=== PATIENT | male | born 1955 | race African-American/Black ===

== ENCOUNTER → 2017-09-20 12:21 | Outpatient (CLI) | payer OTHER, SELFPAY ==
[2017-09-20 14:15] LABS: Creatinine, Urine (random) < 13.00 mg/dL (NO RANGE EST.); Protein, Urine (Random) < 6.0 mg/dL (<11.9)
[2017-09-20 14:18] LABS: Albumin, Serum 3.9 g/dL (3.2-5.0); BUN 23 mg/dL (7-18); BUN/Creat Ratio 14.6 RATIO (10-20); Calcium,Total 8.7 mg/dL (8.5-10.1); Chloride 99 mmol/L (98-107); Creatinine, Serum 1.58 mg/dL (0.70-1.30); EST Glomerular Filtration Rate 48 mL/min (>60); Est Glom Filt Rate - Afr Amer 58 mL/min (>60); Glucose 89 mg/dL (74-106); Phosphorus 3.4 mg/dL (2.5-4.9); Potassium 3.8 mmol/L (3.5-5.1); Sodium Level 132 mmol/L (136-145)
== END ==
PROVIDERS: Family Provider Family Medicine Geriatric Medicine; PCP Family Medicine Geriatric Medicine; Visit Provider Internal Medicine Nephrology
DX: N18.3 Chronic kidney disease, stage 3 (moderate) (principal)
CPT/HCPCS: 36415; 80069; 82570; 84156

== ENCOUNTER → 2017-10-14 16:32 | Outpatient (CLI) | payer OTHER, SELFPAY ==
[2017-10-14 17:16] LABS: Absolute Lymphocyte Count 1.63 X10^3/ul (0.83-4.51); Absolute Neutrophil Count 4.1 X10^3/uL (2.0-7.7); Basophil# 0.02 X10^3/uL; Basophil% 0.3 % (0-1); Eosinophil# 0.13 X10^3/uL; Hematocrit 45.2 % (40-54); Hemoglobin 15.1 g/dl (13.0-16.5); Lymphocyte # 1.63 X10^3/ul (4.0); Lymphocyte % 24.9 % (19-41); Mean Corp Hgb Conc 33.4 g/gl (32-36); Mean Corpuscular Hgb 28.9 pg (27.0-32.0); Mean Corpuscular Volume 86.6 fL (80-94); Mean Platelet Vol. 10.1 fl (6.2-12.0); Monocyte# 0.65 X10^3/uL; Monocyte% 9.9 % (0-10); Neutrophil % 62.7 % (47-70); Platelet Count 264 K/mm3 (150-450); RBC Distribution Width CV 14.2 % (11.6-14.6); RBC Distribution Width SD 44.8 fl (35.1-43.9); Red Blood Count 5.22 M/mm3 (4.6-6.2); White Blood Count 6.5 K/mm3 (4.4-11.0)
[2017-10-14 17:22] LABS: POSITIVE COUNT NO; POSITIVE DIFFERENTIAL NO; POSITIVE MORPHOLOGY NO
[2017-10-14 18:09] LABS: ALB/GLOB Ratio 0.8 RATIO (0.9-2.4); AST(SGOT) 33 U/L (15-37); Alanine Aminotransfer ALT/SGPT 42 U/L (16-61); Albumin, Serum 3.5 g/dL (3.2-5.0); Alkaline Phosphatase 71 U/L (45-117); Anion Gap 9 (5-15); BUN 11 mg/dL (7-18); BUN/Creat Ratio 7.3 RATIO (10-20); Calcium,Total 8.3 mg/dL (8.5-10.1); Chloride 105 mmol/L (98-107); EST Glomerular Filtration Rate 51 mL/min (>60); Est Glom Filt Rate - Afr Amer 61 mL/min (>60); Globulin 4.5 g/dL (2.2-4.2); Glucose 97 mg/dL (74-106); PSA,Total - Annual Screen 7.28 ng/mL (0.00-4.00); Potassium 3.7 mmol/L (3.5-5.1); Sodium Level 139 mmol/L (136-145); Thyroid Stim Hormone (TSH) 1.81 uIU/mL (0.358-3.74)
[2017-10-16 11:03] LABS: Hep C Antibodies <0.1 s/co ratio (0.0-0.9)
== END ==
PROVIDERS: Family Provider Family Medicine Geriatric Medicine; PCP Family Medicine Geriatric Medicine; Visit Provider Family Medicine Geriatric Medicine
DX: I10 Essential (primary) hypertension (principal); M10.9 Gout, unspecified; Z12.5 Encounter for screening for malignant neoplasm of prostate; Z13.89 Encounter for screening for other disorder
CPT/HCPCS: 36415; 80053; 84153; 84443; 84550; 85025; 86803; G0103

== ENCOUNTER → 2018-02-13 10:41 | Outpatient (CLI) | payer OTHER, SELFPAY ==
[2018-02-13 12:56] LABS: PSA,Total- Diagnostic 7.86 ng/mL (0.0-4.0)
== END ==
PROVIDERS: Family Provider Family Medicine Geriatric Medicine; PCP Family Medicine Geriatric Medicine; Visit Provider Urology
DX: R97.20 Elevated prostate specific antigen [PSA] (principal)
CPT/HCPCS: 36415; 84153

== ENCOUNTER → 2018-03-11 17:35 | Outpatient (CLI) | payer OTHER, SELFPAY ==
--- NOTE | 2018-03-11 | IMM_PTH ---
PATIENT: MANJINDER GREY LOC: [facility] U#:[id number] AGE/SX: 69/M ROOM: RE03/11/[address]: Dr. Supa Cooper MD : 1955 BED: DIS: SPEC #: [id number] RECD: 03/13/18 11:18 STATUS: SANDRA DANIAL #: [id number] AURY: 03/11/18 00:[address]: Supa Cooper DEPT: IMMUNOHISTOCHEMISTRY RECD BY: Dawn Rasmussen Tissues: B - PROSTATE RIGHT C - PROSTATE RIGHT F - PROSTATE LEFT Procedures: 34BE12 (add) P40 (add) 34BE12 (initial) PHYSICIAN & [place] [id number] SPECIMEN INFORMATION: Tissue Source: B - Right prostate, mid, C - Right prostate, base, F - Left prostate, base Clinical Info: Elevated PSA Specimen Number: [id number] B, C & F CPT code: 67337, 54140 x5 METHODOLOGY: Deparaffinized sections of prefer/formalin-fixed tissue or PAP/DQ stained slides are incubated with monoclonal/polyclonal antibodies/oligonucleotide probes. Localization is made via biotin free immunoperoxidase method. Appropriate controls are performed and reacted as expected. Results on target cell population are indicated in the following table: RESULTS: ANTIBODY / CLONE RESULT Block B P40 (BC28) negative 34BE12 (34BE12) negative Block C P40 (BC28) negative 34BE12 (34BE12) negative Block F P40 (BC28) negative 34BE12 (34BE12) negative These tests were developed and their performance characteristics determined by [facility]. They may not have been cleared or approved by the [place]. Food and Drug Administration. The FDA has determined that such clearance or approval is not necessary. INTERPRETATION: B. Right prostate, mid, core biopsy: Minute foci of adenocarcinoma, discontinuous. C. Right prostate, base, core biopsy: Minute foci of adenocarcinoma, discontinuous. F. Left prostate, base, core biopsy: Minute foci of adenocarcinoma. SJ:keon 03/14/18
--- NOTE | 2018-03-11 11:15 | PROSBIL_PTH ---
PATIENT: MANJINDER GREY LOC: [facility] U#:[id number] AGE/SX: 69/M ROOM: RE03/11/[address]: Dr. Supa Cooper MD : 1955 BED: DIS: SPEC #: [id number] RECD: 03/11/18 17:36 STATUS: SANDRA DANIAL #: [id number] AURY: 03/11/18 11:[address]: Supa Cooper DEPT: SURGICAL PATHOLOGY RECD BY: Antoine Rivero ENTERED: 03/12/18 08:26 SP TYPE: PROST BX BY[place] DR: Dr. Manan Brady MD Tissues: A - PROSTATE RIGHT B - PROSTATE RIGHT C - PROSTATE RIGHT D - PROSTATE LEFT E - PROSTATE LEFT F - PROSTATE LEFT Procedures: PROSTATE BX HEADER OPERATION: Prostate biopsy PRE-OP DIAGNOSIS: Elevated PSA TISSUE SUBMITTED: A - Right apex, B - Right mid, C - Right base, D - Left apex, E - Left mid, F - Left base MICROSCOPIC DIAGNOSIS A. Right prostate, apex, core biopsy: Prostatic adenocarcinoma: [place] grade: 3+4=7 Number of cores involved: 1 out of 2 Proportion of tissue involved: 20% Perineural invasion: Not identified. Greatest tumor length: 0.3 cm B. Right prostate, mid, core biopsy: Minute foci of adenocarcinoma: [place] grade: 4+3=7 Number of cores involved: 2 out of 2 Proportion of tissue involved: <5% Perineural invasion: Not identified. Greatest tumor length: 0.9 cm, discontinuous. See comment. C. Right prostate, base, core biopsy: Minute foci of adenocarcinoma: [place] grade: 3+3=6 Number of cores involved: 2 out of 2 Proportion of tissue involved: <5% Perineural invasion: Not identified. Greatest tumor length: 0.7 cm, discontinuous. Focal high-grade prostatic intraepithelial neoplasia (HGPIN). See comment. D. Left prostate, apex, core biopsy: Prostatic adenocarcinoma: [place] grade: 3+4=7 Number of cores involved: 1 out of 1 Proportion of tissue involved: 60%, discontinuous Perineural invasion: Not identified. Greatest tumor length: 0.6 cm See comment. E. Left prostate, mid, core biopsy: Prostatic adenocarcinoma: [place] grade: 3+3=6 Number of cores involved: 2 out of 2 Proportion of tissue involved: ~25% Perineural invasion: Not identified. Greatest tumor length: 0.3 cm F. Left prostate, base, core biopsy: Minute foci of adenocarcinoma: [place] grade: 3+4=7 Number of cores involved: 2 out of 2 Proportion of tissue involved: <5% Perineural invasion: Not identified. Greatest tumor length: 0.1 cm See comment. SJ:keon 03/13/18 COMMENT B, C & F - Immunohistochemistry ([id number]) supports the above diagnosis. D. The tumor also involves the skeletal muscle tissue present in the specimen. Case has been reviewed in consultation with Dr. Burciaga who concurs with the above diagnosis. IDC:AM MICROSCOPIC DESCRIPTION Slides are reviewed. GROSS DESCRIPTION A - Received is one container designated prostate, right apex. The specimen consists of two elongated fragments of light jarrell-white soft tissue measuring 0.8 and 1.2 cm in length and 0.1 cm in diameter. The specimen is totally submitted in one cassette. B - Received is one container designated prostate, right mid. The specimen consists of two elongated fragments of light jarrell-white soft tissue each measuring 1.5 cm in length and 0.1 cm in diameter. The specimen is totally submitted in one cassette. C - Received is one container designated prostate, right base. The specimen consists of two elongated fragments of light jarrell-white soft tissue measuring 1 and 1.5 cm in length and 0.1 cm in diameter. The specimen is totally submitted in one cassette. D - Received is one container designated prostate, left apex. The specimen consists of one elongated fragment of light jarrell-white soft tissue measuring 1 cm in length and 0.1 cm in diameter. The specimen is totally submitted in one cassette. E - Received is one container designated prostate, left mid. The specimen consists of two elongated fragments of light jarrell-white soft tissue each measuring 2 cm in length and 0.1 cm in diameter. The specimen is totally submitted in one cassette. F - Received is one container designated prostate, left base. The specimen consists of two elongated fragments of light jarrell-white soft tissue measuring 1.5 and 1.8 cm in length and 0.1 cm in diameter. The specimen is totally submitted in one cassette. / LUIS:keon 03/12/18 TC:0 CPT: 14380 x6
== END ==
PROVIDERS: Visit Provider Urology
DX: R97.20 Elevated prostate specific antigen [PSA] (principal)
CPT/HCPCS: 88305; 88341; 88342; G0416

== ENCOUNTER → 2018-03-25 10:06 | Outpatient (CLI) | payer OTHER, SELFPAY | PROVIDERS: Family Provider Family Medicine Geriatric Medicine; PCP Family Medicine Geriatric Medicine; Visit Provider Urology | DX: C61 Malignant neoplasm of prostate (principal) | CPT/HCPCS: 78306 ==

== ENCOUNTER 2018-06-06 10:33 | Day surgery (SDC) | payer OTHER, SELFPAY ==
[2018-06-06] VITALS (9 sets, daily range): BP systolic 85–128; BP diastolic 52–87; PULSE 79–98; RESP 16–18; TEMP 36.3–37.1; O2SAT 95–100; BMI 33.2
[2018-06-06] MEDS: Cefazolin 2 GM in 0.9% Normal Saline 100 ML IV (13:18)
[2018-06-06] MEDS: Lubricating Jelly 60 GM Tube 30 GM TOPICAL (13:31)
--- NOTE | 2018-06-06 13:58 | DCINST_ITS ---
Discharge Diet: Light diet - advance as tolerated Discharge Activity: No Restrictions Allergies/Adverse Reactions: Allergies No Known Allergies Allergy (Verified 05/30/18 13:21) Medications to take at Discharge Amlodipine Besylate/Benazepril [Amlodipine-Benazepril 10-20 mg] 1 each PO DAILY 05/30/18 Febuxostat [Uloric] 80 mg PO DAILY 05/30/18 Rosuvastatin Calcium [Crestor] 10 mg PO QHS 05/30/18 Primary Care Physician: Manan Brady Chi, MD [Primary Care Provider] - Test Results: Test results from this visit will be discussed in further detail at your follow- up appointment, if applicable. Please Follow Up With: Supa Cooper MD
--- NOTE | 2018-06-06 13:58 | PCM.OPRPT ---
Report of Operation Date of Procedure: 06/06/18 Pre-Operative Diagnosis: Prostate cancer Post-Operative Diagnosis: Same Surgery/Procedure Performed:: Transperineal placement of 3 gold fiducial markers for radiation treatment, placement of a spacer O AR gel between the prostate and rectum to protect the rectum Description of Surgical Findings:: 62-year-old male who is elected to undergo radiation treatment for prostate cancer we talked about the options of treatment including radiation therapy with adjuvant deprivation therapy and surgery, brachytherapy as well as other options after a full review and a second opinion the patient comes back and he wants to proceed with radiation external beam radiation therapy, and he is agreed to proceed with placement of fiducial markers as recommended by the radiation oncologist and also placement of a spacer O AR gel to protect the rectum from radiation injury. 62-year-old male taken back to the operating room after smooth induction of general anesthesia he was placed supine on the table with the legs in dorsolithotomy position the perineum testicles penis and rectal area were prepped and draped in usual sterile fashion used 1000 drape the pole of the testicles I then introduced a biplanar ultrasound probe into the rectum we performed ultrasonography of the prostate identify the prostate landmarks the tenotomies fascia of the rectum. I then placed 3 gold fiducial markers transperineally into the prostate in 3 different planes the right apex left mid and right base of the prostate once all 3 fiducial markers were placed in the proper position there were deployed using the needles. After the fusion markers were placed then we prepared prepared the spacer AOR gel the spacer gel was prepared as instructed as the manufactures instructions were followed very closely to make sure the gel was prepared properly we then used a bevel needle up to advance the needle through the perineum pass the rectal hump into the space between the rectum and an obvious fascia below the prostate we could see a cyst in the mid prostate we then tested the space with a little bit of saline and this expanded the space with no extravasation and a nice puff of saline in the perirectal space once the needle was confirmed to be in proper location both by biplanar and sagittal view on ultrasound I then attached to the gel was prepared to the needle we then deployed the gel over the course of 12 seconds into the space below the prostate above the rectum once the gel was deployed then a review of course was obstructed by the gel white washing of the prostate into the prostate and more but the gel appear to be in a good position both both attached sagittally and longitudinal view and ultrasound and I was satisfied with the positioning of the gel matrix at this point then the ultrasound was removed the needle was removed and the patient's anesthetic was reversed taken back to PACU good condition is good to proceed with radiation treatments. Type of Anesthesia:: General Drains: none Estimated Blood Loss (mL): none Grafts/Implants Used: gold markers, AOR gel - Admit VTE Documentation VTE Present on Admission: No VTE Mechan Device Prophylaxis: SCD's
== END 2018-06-06 15:50 | disposition home or self-care (01) ==
LOC: SDC 10:33 → AC 10:35
PROVIDERS: Family Provider Family Medicine Geriatric Medicine; PCP Family Medicine Geriatric Medicine; Referring Provider Urology; Visit Provider Urology
PROC: (CPT 55874; principal; 2018-06-06 12:30)
DX: C61 Malignant neoplasm of prostate (principal); I13.10 Hypertensive heart and chronic kidney disease without heart failure, with stage 1 through stage 4 chronic kidney disease, or unspecified chronic kidney disease; N18.3 Chronic kidney disease, stage 3 (moderate); K21.9 Gastro-esophageal reflux disease without esophagitis; E78.5 Hyperlipidemia, unspecified; G47.30 Sleep apnea, unspecified; Z79.899 Other long term (current) drug therapy
CPT/HCPCS: 00902; 55875; 76965; 77799; J7120; J2405

== ENCOUNTER → 2018-06-20 10:43 | Outpatient (CLI) | payer OTHER, SELFPAY ==
[2018-06-19 11:42] LABS: Absolute Lymphocyte Count 1.42 X10^3/ul (0.83-4.51); Absolute Neutrophil Count 3.4 X10^3/uL (2.0-7.7); Basophil# 0.03 X10^3/uL; Basophil% 0.5 % (0-1); Eosinophil# 0.09 X10^3/uL; Eosinophils% 1.6 % (0-5); Hematocrit 45.6 % (40-54); Hemoglobin 15.4 g/dl (13.0-16.5); Lymphocyte # 1.42 X10^3/ul (4.0); Lymphocyte % 24.8 % (19-41); Mean Corp Hgb Conc 33.8 g/gl (32-36); Mean Corpuscular Hgb 29.2 pg (27.0-32.0); Mean Corpuscular Volume 86.4 fL (80-94); Mean Platelet Vol. 10.3 fl (6.2-12.0); Monocyte# 0.74 X10^3/uL; Monocyte% 12.9 % (0-10); Neutrophil # 3.44 X10^3/uL (2.7-7.7); Platelet Count 296 K/mm3 (150-450); RBC Distribution Width CV 13.9 % (11.6-14.6); Red Blood Count 5.28 M/mm3 (4.6-6.2); White Blood Count 5.7 K/mm3 (4.4-11.0)
[2018-06-19 11:43] LABS: POSITIVE COUNT NO; POSITIVE DIFFERENTIAL NO; POSITIVE MORPHOLOGY NO
[2018-06-19 12:14] LABS: Creatinine, Serum 1.75 mg/dL (0.70-1.30); EST Glomerular Filtration Rate 42 mL/min (>60); Est Glom Filt Rate - Afr Amer 51 mL/min (>60); PSA,Total- Diagnostic 7.23 ng/mL (0.0-4.0)
--- NOTE | 2018-06-20 10:45 | CT_ITS ---
STUDY: CT PELVIS WITH CONTRAST REASON FOR EXAM: Male, 62 years old. Recent diagnosis of prostate cancer. This is a radiation treatment planning examination. RADIATION DOSAGE (If Supplied By Facility): CTDIvol = ( 24.62 ) mGy, DLP = ( 1608.31 ) mGycm TECHNIQUE: Transaxial imaging of the pelvis was performed without oral contrast. 100CC ml of Isovue 250 contrast was administered intravenously. A urethrogram was performed as well. Individualized dose optimization techniques were used for this CT. COMPARISON: None. FINDINGS: Normal urinary bladder. Metallic seeds are seen within the prostate. The prostate measures 4.2 cm x 5.1 cm. Small benign appearing bilateral inguinal lymph nodes. The urethra is unremarkable. Normal visualized small intestine. Normal visualized colon. There is no pelvic fluid. There is no pelvic lymphadenopathy or mass lesion. There is diffuse atherosclerotic calcification of the pelvic arteries. Normal abdominal wall. There are degenerative changes of the visualized lumbar spine. Degenerative changes of both sacroiliac joints. CT/Pelvis WITH IV Contrast IMPRESSION: Metallic seeds are seen within the prostate. Electronically Signed: Andrea Banegas MD at 8:26 EST Tel [phone], Service support ,
[2018-06-20 11:56] LABS: CREATININE FINGERSTICK 1.6 mg/dL (0.70-1.30)
== END ==
PROVIDERS: Family Provider Family Medicine Geriatric Medicine; PCP Family Medicine Geriatric Medicine; Referring Provider Radiology Radiation Oncology; Visit Provider Radiology Radiation Oncology
DX: Z01.818 Encounter for other preprocedural examination (principal); C61 Malignant neoplasm of prostate
CPT/HCPCS: 36415; 72193; 82565; 84153; 85025; Q9967

== ENCOUNTER → 2018-07-14 12:38 | Outpatient (CLI) | payer OTHER, SELFPAY ==
[2018-06-06 11:20] VITALS: BMI 33.2
[2018-07-14 13:34] LABS: Protein, Urine (Random) < 6.0 mg/dL (<11.9)
[2018-07-14 13:45] LABS: Albumin, Serum 3.5 g/dL (3.2-5.0); BUN 29 mg/dL (7-18); BUN/Creat Ratio 17.3 RATIO (10-20); Calcium,Total 8.8 mg/dL (8.5-10.1); Chloride 102 mmol/L (98-107); Creatinine, Serum 1.68 mg/dL (0.70-1.30); EST Glomerular Filtration Rate 44 mL/min (>60); Est Glom Filt Rate - Afr Amer 54 mL/min (>60); Glucose 95 mg/dL (74-106); Phosphorus 3.3 mg/dL (2.5-4.9); Potassium 4.2 mmol/L (3.5-5.1); Sodium Level 137 mmol/L (136-145)
--- OUTSIDE RECORDS SUMMARY | 2018-09-06 19:11 | XMS RPT_ITS ---
:1955 Author Organization OHIP Support Name Relationship Address Phone ALEXANDRE GREY Unavailable [address] + [place] [address] SEACO Unavailable [address] + [place] [address] QUE, ALEXANDRE Unavailable [address] + [place] [address] SEACO Unavailable [address] + [place] [address] QUE, ALEXANDRE Unavailable [address] + [place] [address] SEACO Unavailable [address] + [place] [address] QUE, ALEXANDRE Unavailable [address] + [place] [address] SEACO Unavailable [address] + [place] [address] QUE, ALEXANDRE Unavailable [address] + [place] [address] SEACO Unavailable [address] + [place] [address] QUE, ALEXANDRE Unavailable [address] + [place] [address] SEACO Unavailable [address] + [place] [address] QUE, ALEXANDRE Unavailable [address] + [place] [address] SEACO Unavailable [address] + [place] [address] QUE, ALEXANDRE Unavailable [address] + [place] [address] SEACO Unavailable [address] + [place] [address] QUE, ALEXANDRE Unavailable [address] + [place] [address] SEACO Unavailable [address] + [place] [address] QUE ALEXANDRE Unavailable [address] + [place] [address] SEACO Unavailable [address] + [place] [address] Care Team Providers Name Role Phone Yong Sears Attending Unavailable Yong Sears Referring Unavailable Jose Antonio, Manan Chi Primary Care Unavailable Eli Epstein Attending Unavailable Lucian, Eli Referring Unavailable Jose Antonio, Manan Chi Primary Care Unavailable Jose Antonio, Manan Chi Attending Unavailable Jose Antonio, Manan Chi Primary Care Unavailable Kenneth, Supa Crowe Attending Unavailable Kenneth, Supa Crowe Referring Unavailable Jose Antonio, Manan Chi Primary Care Unavailable Kenneth, Supa Crowe Attending Unavailable Jose Antonio, Manan Chi Primary Care Unavailable Kenneth, Alpesh Referring Unavailable Kenneth, Supa Crowe Attending Unavailable Kenneth, Alpesh Referring Unavailable Jose Antonio, Manan Chi Primary Care Unavailable Kenneth, Supa Crowe Attending Unavailable Jose Antonio, Manan Chi Primary Care Unavailable Kenneth, Alpesh Referring Unavailable Lucian, Eli Attending Unavailable Jose Antonio, Manan Chi Primary Care Unavailable Yong Sears Attending Unavailable Yong Sears Referring Unavailable Jose Antonio, Manan Chi Primary Care Unavailable Lucian, Eli Attending Unavailable Lucian, Eli Referring Unavailable Jose Antonio, Manan Chi Primary Care Unavailable PROBLEMS PROBLEMS DATE TYPE CONDITION / CODE ATTENDING STATUS SOURCE 06/20/2018 Unknown C61 - Malignant Yong Sears Active [facility] C61(ICD-10) Repository PROCEDURES PROCEDURES No Procedure Records FoundRESULTS RESULTS CBC W/DIFF, AUTOMATED Collected: 07/23/2018 Status: F Source: [place] 12:56 PM [facility] REPOSITORY TYPE CODE TESTS RESULT OUT OF RANGE REFERENCE UNITS LAB L100.1000 4.4-11.0 K/mm3 Normal WBC 4.6 LAB L100.1200 4.6-6.2 M/mm3 Normal RBC 4.97 LAB L100.1300 13.0-16.5 g/dl Normal HGB 14.5 LAB L100.1400 40-54 % Normal HCT 42.5 LAB L100.1500 80-94 fL Normal MCV 85.5 LAB L100.1600 27.0-32.0 pg Normal MCH 29.2 LAB L100.1700 32-36 g/gl Normal MCHC 34.1 LAB L100.1810 11.6-14.6 % Normal RDW CV 13.3 LAB L100.1820 35.1-43.9 fl Normal RDW SD 41.8 LAB L100.1900 150-450 K/mm3 Normal PLT 206 LAB L100.2000 6.2-12.0 fl Normal MPV 9.8 LAB L100.2100 47-70 % High NEUT% 73.0 LAB L100.2200 19-41 % Low LY% 10.8 LAB L100.2300 0-10 % High MONO% 14.1 LAB L100.2400 0-5 % Normal EO% 1.9 LAB L100.2500 0-1 % Normal BASO% 0.2 LAB L100.2550 0.0-0.9 % Normal IM GRAN % 0.000 Result Comment: IG% - Immature Granulocytes (promyelocytes, myelocytes and metamyelocytes) > 1% indicates that a LEFT SHIFT is Present. LAB L100.2620 2.0-7.7 X10 3/uL Normal Absolute Neut 3.4 LAB L100.2720 0.83-4.51 X10 3/ul Low Absolute Lymph 0.50 LAB L100.4500 Normal SMEAR COMMENT COMMENT Result Comment: SLIDE SCANNED - LYMPHOPENIA NOTED. Performed By: #### L100.0100 #### [facility] [address] [place], [place], [id number] PROTEIN+CREATININE Collected: Status: F Source: [place] [facility],URINE 07/14/2018 12:48 PM [facility] REPOSITORY TYPE CODE TESTS RESULT OUT OF RANGE REFERENCE UNITS LAB L501.1200 NO RANGE EST. mg/dL 17.50 Normal UR CREAT LAB L501.1930 <11.9 mg/dL < 6.0 Normal PROTEIN,UR. RAN. LAB L501.1940 0-200 mg/g CRE Test Normal not performed PROT:CRE RATIO Performed By: #### L501.0900 #### [facility] [address] [place], [place], [id number] RENAL PROFILE Collected: 07/14/2018 Status: F Source: [place] 12:48 PM [facility] REPOSITORY TYPE CODE TESTS RESULT OUT OF RANGE REFERENCE UNITS LAB L501.0100 74-106 mg/dL Normal GLU 95 Result Comment: Please note revised GLUCOSE reference range effective 2017. LAB L501.1000 7-18 mg/dL High BUN 29 LAB L501.1100 0.70-1.30 mg/dL High CREAT,SERUM 1.68 Result Comment: The validity of the calculated GFR AND GFRAA in patients over 70 years has not been determined. Clinical correlation is essential. LAB L501.1110 >60 mL/min Low EST GFR 44 Result Comment: Non- GFR Calc LAB L501.1115 >60 mL/min Low EST GFR - AA 54 Result Comment: GFR Calc LAB L501.1300 10-20 RATIO Normal BUN/CRE 17.3 LAB L501.1800 3.2-5.0 g/dL Normal ALB 3.5 LAB L501.2200 8.5-10.1 mg/dL CA Normal 8.8 LAB L501.2300 2.5-4.9 mg/dL Normal PHOS 3.3 LAB L501.5300 136-145 mmol/L NA Normal 137 LAB L501.5600 3.5-5.1 mmol/L K Normal 4.2 LAB L501.5900 98-107 mmol/L CL Normal 102 LAB L501.6100 21.0-32.0 mmol/L Normal CO2 24.0 Performed By: #### L500.3600 #### [facility] [address] [place], [place], [address] CREATININE FINGERSTICK Collected: 06/20/2018 Status: F Source: [place] 11:18 AM [facility] REPOSITORY TYPE CODE TESTS RESULT OUT OF REFERENCE UNITS RANGE LAB L9100.0210 0.70-1.30 mg/dL High CREATININE WB 1.6 LAB L9100.0220 >60 mL/min Low EGFR WB 58.0000 Performed By: #### L9100.0200 #### [facility] Point of Care [address] [place] [address] PELVIS WITH IV Observed: 06/20/2018 Status: F Source: [place] CONTRAST 10:45 AM [facility] REPOSITORY [facility] Imaging Services [address] [place] [address] Pelvis WITH IV Contrast MR#: [id number] Acct: [id number] Name: NORBERTO GREY Rep #: [id number] : 1955 M 62 From: Andrea Banegas MD PCP: Manan Brady MD, Chi Status: REG CLI Study: Pelvis WITH IV Contrast Date of Exam: 06/20/18 Exam# [id number] Ordering Dr: Yong Sears MD STUDY: CT PELVIS WITH CONTRAST REASON FOR EXAM: Male, 62 years old. Recent diagnosis of prostate cancer. This is a radiation treatment planning examination. RADIATION DOSAGE (If Supplied By Facility): CTDIvol = ( 24.62 ) mGy, DLP = ( 1608.31 ) mGycm TECHNIQUE: Transaxial imaging of the pelvis was performed without oral contrast. 100CC ml of Isovue 250 contrast was administered intravenously. A urethrogram was performed as well. Individualized dose optimization techniques were used for this CT. COMPARISON: None. FINDINGS: Normal urinary bladder. Metallic seeds are seen within the prostate. The prostate measures 4.2 cm x 5.1 cm. Small benign appearing bilateral inguinal lymph nodes. The urethra is unremarkable. Normal visualized small intestine. Normal visualized colon. There is no pelvic fluid. There is no pelvic lymphadenopathy or mass lesion. There is diffuse atherosclerotic calcification of the pelvic arteries. Normal abdominal wall. There are degenerative changes of the visualized lumbar spine. Degenerative changes of both sacroiliac joints. CT/Pelvis WITH IV Contrast IMPRESSION: Metallic seeds are seen within the prostate. Electronically Signed: Andrea Banegas MD at 8:26 EST Tel [phone], Service support , CC: Yong Sears MD; Manan Brady MD Foundry Process Engineer: Signed CBC W/DIFF, AUTOMATED Collected: 06/19/2018 Status: F Source: [place] 10:32 AM [facility] REPOSITORY TYPE CODE TESTS RESULT OUT OF RANGE REFERENCE UNITS LAB L100.1000 4.4-11.0 K/mm3 Normal WBC 5.7 LAB L100.1200 4.6-6.2 M/mm3 Normal RBC 5.28 LAB L100.1300 13.0-16.5 g/dl Normal HGB 15.4 LAB L100.1400 40-54 % Normal HCT 45.6 LAB L100.1500 80-94 fL Normal MCV 86.4 LAB L100.1600 27.0-32.0 pg Normal MCH 29.2 LAB L100.1700 32-36 g/gl Normal MCHC 33.8 LAB L100.1810 11.6-14.6 % Normal RDW CV 13.9 LAB L100.1820 35.1-43.9 fl High RDW SD 44.0 LAB L100.1900 150-450 K/mm3 Normal PLT 296 LAB L100.2000 6.2-12.0 fl Normal MPV 10.3 LAB L100.2100 47-70 % Normal NEUT% 60.0 LAB L100.2200 19-41 % Normal LY% 24.8 LAB L100.2300 0-10 % High MONO% 12.9 LAB L100.2400 0-5 % Normal EO% 1.6 LAB L100.2500 0-1 % Normal BASO% 0.5 LAB L100.2550 0.0-0.9 % Normal IM GRAN % 0.200 Result Comment: IG% - Immature Granulocytes (promyelocytes, myelocytes and metamyelocytes) > 1% indicates that a LEFT SHIFT is Present. LAB L100.2620 2.0-7.7 X10 3/uL Normal Absolute Neut 3.4 LAB L100.2720 0.83-4.51 X10 3/ul Normal Absolute Lymph 1.42 Performed By: #### L100.0100 #### [facility] [address] [place], [address] SERUM CREATININE AND Collected: 06/19/2018 Status: F Source: [place] GFR 10:32 AM [facility] REPOSITORY TYPE CODE TESTS RESULT OUT OF RANGE REFERENCE UNITS LAB L501.1100 0.70-1.30 mg/dL High 1.75 CREAT,SERUM Result Comment: The validity of the calculated GFR AND GFRAA in patients over 70 years has not been determined. Clinical correlation is essential. LAB L501.1110 >60 mL/min Low EST GFR 42 Result Comment: Non- GFR Calc LAB L501.1115 >60 mL/min Low EST GFR - AA 51 Result Comment: GFR Calc Performed By: #### L501.1105, L501.9940 #### [facility] [address] [place], [address] PSA,TOTAL- DIAGNOSTIC Collected: 06/19/2018 Status: F Source: [place] 10:32 AM [facility] REPOSITORY TYPE CODE TESTS RESULT OUT OF REFERENCE UNITS RANGE LAB L501.9940 0.0-4.0 ng/mL PSA, High DIAGNOSTIC 7.23 Result Comment: This test was performed using the TPSA assay method for the Solaicx chemistry system. Values obtained with different assay methods cannot be used interchangably. When changing PSA assays in the course of monitoring a patient, additional sequential testing should be carried out to confirm baseline values. Performed By: #### L501.1105, L501.9940 #### [facility] [address] [place], [address] OPERATIVE REPORT Observed: 06/06/2018 Status: F Source: [place] 2:03 PM [facility] REPOSITORY [facility] Medical Records Department [address] [facility] [place] [address] Operative Report 06/06/18 1358 MR#: [id number] Acct: [id number] Name: NORBERTO GREY Rep #: [id number] : 1955 62 From: Supa Cooper MD PCP: Manan Brady MD, Chi Status: [facility] Y Location: [place] [address] Report of Operation Date of Procedure: 06/06/18 Pre-Operative Diagnosis: Prostate cancer Post-Operative Diagnosis: Same Surgery/Procedure Performed:: Transperineal placement of 3 gold fiducial markers for radiation treatment, placement of a spacer O AR gel between the prostate and rectum to protect the rectum Description of Surgical Findings:: 62-year-old male who is elected to undergo radiation treatment for prostate cancer we talked about the options of treatment including radiation therapy with adjuvant deprivation therapy and surgery, brachytherapy as well as other options after a full review and a second opinion the patient comes back and he wants to proceed with radiation external beam radiation therapy, and he is agreed to proceed with placement of fiducial markers as recommended by the radiation oncologist and also placement of a spacer O AR gel to protect the rectum from radiation injury. 62-year-old male taken back to the operating room after smooth induction of general anesthesia he was placed supine on the table with the legs in dorsolithotomy position the perineum testicles penis and rectal area were prepped and draped in usual sterile fashion used 1000 drape the pole of the testicles I then introduced a biplanar ultrasound probe into the rectum we performed ultrasonography of the prostate identify the prostate landmarks the tenotomies fascia of the rectum. I then placed 3 gold fiducial markers transperineally into the prostate in 3 different planes the right apex left mid and right base of the prostate once all 3 fiducial markers were placed in the proper position there were deployed using the needles. After the fusion markers were placed then we prepared prepared the spacer AOR gel the spacer gel was prepared as instructed as the manufactures instructions were followed very closely to make sure the gel was prepared properly we then used a bevel needle up to advance the needle through the perineum pass the rectal hump into the space between the rectum and an obvious fascia below the prostate we could see a cyst in the mid prostate we then tested the space with a little bit of saline and this expanded the space with no extravasation and a nice puff of saline in the perirectal space once the needle was confirmed to be in proper location both by biplanar and sagittal view on ultrasound I then attached to the gel was prepared to the needle we then deployed the gel over the course of 12 seconds into the space below the prostate above the rectum once the gel was deployed then a review of course was obstructed by the gel white washing of the prostate into the prostate and more but the gel appear to be in a good position both both attached sagittally and longitudinal view and ultrasound and I was satisfied with the positioning of the gel matrix at this point then the ultrasound was removed the needle was removed and the patient's anesthetic was reversed taken back to PACU good condition is good to proceed with radiation treatments. Type of Anesthesia:: General Drains: none Estimated Blood Loss (mL): none Grafts/Implants Used: gold markers, AOR gel - Admit VTE Documentation VTE Present on Admission: No VTE Mechan Device Prophylaxis: SCD's 06/06/18 1403 <Electronically signed by Supa Cooper MD> Date Supa Cooper MD CC: Supa Cooper MD; Manan Brady MD Signed DISCHARGE INSTRUCTION Observed: 06/06/2018 Status: F Source: [place] 1:58 PM [facility] REPOSITORY [facility] Medical Records Department [address] [place] [address] [place] [address] Instructions for Home/Discharge Instructions 06/06/18 1358 MR#: [id number] Acct: [id number] Name: NORBERTO GREY Rep #: [id number] : 1955 62 From: Supa Cooper MD PCP: Manan Brady MD, Chi Status: REG [facility] Discharge Diet: Light diet - advance as tolerated Discharge Activity: No Restrictions Allergies/Adverse Reactions: Allergies No Known Allergies Allergy (Verified 05/30/18 13:21) Medications to take at Discharge Amlodipine Besylate/Benazepril [Amlodipine-Benazepril 10-20 mg] 1 each PO DAILY 05/30/18 Febuxostat [Uloric] 80 mg PO DAILY 05/30/18 Rosuvastatin Calcium [Crestor] 10 mg PO QHS 05/30/18 Primary Care Physician: Manan Brady Chi, MD [Primary Care Provider] - Test Results: Test results from this visit will be discussed in further detail at your follow-up appointment, if applicable. Please Follow Up With: Supa Cooper MD 06/06/18 5497 <Electronically signed by Supa Cooper MD> Date Supa Cooper MD CC: Maann Brady MD BONE SCAN WHOLE Observed: 03/25/2018 Status: F Source: [place] BODY 10:08 AM [facility] REPOSITORY [facility] Imaging Services [address] [place] [address] Bone Scan Whole Body MR#: [id number] Acct: [id number] Name: NORBERTO GREY Rep #: [id number] : 1955 M 62 From: Herminio Owens DO PCP: Manan Brady MD, Chi Status: REG CLI Study: Bone Scan Whole Body Date of Exam: 03/25/18 Exam# [id number] Ordering Dr: Supa Cooper MD CLINICAL: 62-year-old male with reported history of carcinoma of the prostate. WHOLE BODY 99m Tc MDP RADIONUCLIDE BONE SCINTIGRAPHY COMPARISON: None available FINDINGS: Following the intravenous administration of 26.0 mCi of 99m Tc MDP, whole body bone images reveal: 1. Increased radiopharmaceutical concentration is identified in the acromioclavicular and sternoclavicular compartments of both shoulders, bilateral elbow and wrist articulations, right-left hands, knees bilaterally, the left sacroiliac joint, fifth-10th thoracic vertebra heterogeneously. 2. The remaining skeletal structures are scintigraphically unremarkable with normal-appearing renal images and urinary bladder activity identified. An increase in uptake is demonstrated in the bilateral mandible and maxilla most consistent with periodontal disease and/or periostitis. NM/Bone Scan Whole Body IMPRESSION: 1. The increase in radiopharmaceutical concentration identified in the bilateral shoulder, elbow and wrist articulations, hands bilaterally, both knees, left sacroiliac joint, several thoracic vertebra is most consistent with degenerative arthritis. Plain film radiography correlation may be of benefit in the region of the left sacroiliac joint. 2. There is no definitive typical scintigraphic evidence of diffuse axial skeletal metastatic disease on the current examination. Electronically Signed: Herminio Owens DO at 21:54 EDT Tel , Service support , CC: Supa Cooper MD; Manan Brady MD Foundry Process Engineer: Signed PROSTATE BIOPSY Observed: 03/11/2018 Status: F Source: [place] BILATERAL 11:15 AM [facility] REPOSITORY Patient: NORBERTO GREY : 1955 (62/M) Acct Num: [id number] Phys: Kenneth ROGER,Alpesh Unit Num: [id number] Loc: [facility] Specimen: [id number] Received: 03/11/18 - 1738 Spec Type: PROST BX TISSUES TISSUES: A. PROSTATE RIGHT - RIGHT APEX B. PROSTATE RIGHT - RIGHT MID C. PROSTATE RIGHT - RIGHT BASE D. PROSTATE LEFT - LEFT APEX E. PROSTATE LEFT - LEFT MID F. PROSTATE LEFT - LEFT BASE COMMENT B, C AND F - Immunohistochemistry ([id number]) supports the above diagnosis. D. The tumor also involves the skeletal muscle tissue present in the specimen. Case has been reviewed in consultation with Dr. Burciaga who concurs with the above diagnosis. IDC:AM GROSS DESCRIPTION A - Received is one container designated prostate, right apex. The specimen consists of two elongated fragments of light jarrell-white soft tissue measuring 0.8 and 1.2 cm in length and 0.1 cm in diameter. The specimen is totally submitted in one cassette. B - Received is one container designated prostate, right mid. The specimen consists of two elongated fragments of light jarrell-white soft tissue each measuring 1.5 cm in length and 0.1 cm in diameter. The specimen is totally submitted in one cassette. C - Received is one container designated prostate, right base. The specimen consists of two elongated fragments of light jarrell-white soft tissue measuring 1 and 1.5 cm in length and 0.1 cm in diameter. The specimen is totally submitted in one cassette. D - Received is one container designated prostate, left apex. The specimen consists of one elongated fragment of light jarrell-white soft tissue measuring 1 cm in length and 0.1 cm in diameter. The specimen is totally submitted in one cassette. E - Received is one container designated prostate, left mid. The specimen consists of two elongated fragments of light jarrell-white soft tissue each measuring 2 cm in length and 0.1 cm in diameter. The specimen is totally submitted in one cassette. F - Received is one container designated prostate, left base. The specimen consists of two elongated fragments of light jarrell-white soft tissue measuring 1.5 and 1.8 cm in length and 0.1 cm in diameter. The specimen is totally submitted in one cassette. / SJ:keon 03/12/18 TC:0 CPT: 22405 x6 HEADER OPERATION: Prostate biopsy PRE-OP DIAGNOSIS: Elevated PSA TISSUE SUBMITTED: A - Right apex, B - Right mid, C - Right base, D - Left apex , E - Left mid, F - Left base MICROSCOPIC DESCRIPTION Slides are reviewed. MICROSCOPIC DIAGNOSIS A. Right prostate, apex, core biopsy: Prostatic adenocarcinoma: Preston grade: 3+4=7 Number of cores involved: 1 out of 2 Proportion of tissue involved: 20% Perineural invasion: Not identified. Greatest tumor length: 0.3 cm B. Right prostate, mid, core biopsy: Minute foci of adenocarcinoma: Preston grade: 4+3=7 Number of cores involved: 2 out of 2 Proportion of tissue involved: <5% Perineural invasion: Not identified. Greatest tumor length: 0.9 cm, discontinuous. See comment. C. Right prostate, base, core biopsy: Minute foci of adenocarcinoma: [place] grade: 3+3=6 Number of cores involved: 2 out of 2 Proportion of tissue involved: <5% Perineural invasion: Not identified. Greatest tumor length: 0.7 cm, discontinuous. Focal high-grade prostatic intraepithelial neoplasia (HGPIN). See comment. D. Left prostate, apex, core biopsy: Prostatic adenocarcinoma: Preston grade: 3+4=7 Number of cores involved: 1 out of 1 Proportion of tissue involved: 60%, discontinuous Perineural invasion: Not identified. Greatest tumor length: 0.6 cm See comment. E. Left prostate, mid, core biopsy: Prostatic adenocarcinoma: Preston grade: 3+3=6 Number of cores involved: 2 out of 2 Proportion of tissue involved: ~25% Perineural invasion: Not identified. Greatest tumor length: 0.3 cm F. Left prostate, base, core biopsy: Minute foci of adenocarcinoma: [place] grade: 3+4=7 Number of cores involved: 2 out of 2 Proportion of tissue involved: <5% Perineural invasion: Not identified. Greatest tumor length: 0.1 cm See comment. LUIS:keon 03/13/18 Signed Basil Linares 03/14/18 <signature on file> Performed By: #### PPROSBIL #### [facility] [address] [place] [address]. [place], [address] IMMUNOHISTOCHEMISTRY Observed: 03/11/2018 Status: F Source: [place] 12:00 AM [facility] REPOSITORY Patient: NORBERTO GREY : 1955 (62/M) Acct Num: [id number] Phys: Kenneth ROGER,Alpesh Unit Num: [id number] Loc: [facility] Specimen: [id number] Received: 03/13/181117 Spec Type: IMMUNO TISSUES TISSUES: B. PROSTATE RIGHT C. PROSTATE RIGHT F. PROSTATE LEFT SPECIMEN INFORMATION: Tissue Source: B - Right prostate, mid, C - Right prostate, base, F - Left prostate, base Clinical Info: Elevated PSA Specimen Number: [id number] B, C AND F CPT code: 80135, 23650 x5 METHODOLOGY: Deparaffinized sections of prefer/formalin-fixed tissue or PAP/DQ stained slides are incubated with monoclonal/polyclonal antibodies/oligonucleotide probes. Localization is made via biotin free immunoperoxidase method. Appropriate controls are performed and reacted as expected. Results on target cell population are indicated in the following table: RESULTS: ANTIBODY / CLONE RESULT Block B P40 (BC28) negative 34BE12 (34BE12) negative Block C P40 (BC28) negative 34BE12 (34BE12) negative Block F P40 (BC28) negative 34BE12 (34BE12) negative These tests were developed and their performance characteristics determined by [facility]. They may not have been cleared or approved by the U.S. Food and Drug Administration. The FDA has determined that such clearance or approval is not necessary. INTERPRETATION: B. Right prostate, mid, core biopsy: Minute foci of adenocarcinoma, discontinuous. C. Right prostate, base, core biopsy: Minute foci of adenocarcinoma, discontinuous. F. Left prostate, base, core biopsy: Minute foci of adenocarcinoma. SJ:keon 03/14/18 PHYSICIAN AND INSTITUTION [address] [address] Signed Basil Linares 03/14/18 <signature on file> Performed By: #### PIMM #### [facility] [address] [place], [address] PSA,TOTAL- DIAGNOSTIC Collected: 02/13/2018 Status: F Source: [place] 10:46 AM [facility] REPOSITORY TYPE CODE TESTS RESULT OUT OF REFERENCE UNITS RANGE LAB L501.9940 0.0-4.0 ng/mL PSA, High DIAGNOSTIC 7.86 Result Comment: This test was performed using the TPSA assay method for the [employer] chemistry system. Values obtained with different assay methods cannot be used interchangably. When changing PSA assays in the course of monitoring a patient, additional sequential testing should be carried out to confirm baseline values. Performed By: #### L501.9940 #### [facility] [address] [place], [address] CBC W/DIFF, AUTOMATED Collected: 10/14/2017 Status: F Source: [facility] 4:33 PM [facility] REPOSITORY TYPE CODE TESTS RESULT OUT OF RANGE REFERENCE UNITS LAB L100.1000 4.4-11.0 K/mm3 Normal WBC 6.5 LAB L100.1200 4.6-6.2 M/mm3 Normal RBC 5.22 LAB L100.1300 13.0-16.5 g/dl Normal HGB 15.1 LAB L100.1400 40-54 % Normal HCT 45.2 LAB L100.1500 80-94 fL Normal MCV 86.6 LAB L100.1600 27.0-32.0 pg Normal MCH 28.9 LAB L100.1700 32-36 g/gl Normal MCHC 33.4 LAB L100.1810 11.6-14.6 % Normal RDW CV 14.2 LAB L100.1820 35.1-43.9 fl High RDW SD 44.8 LAB L100.1900 150-450 K/mm3 Normal PLT 264 LAB L100.2000 6.2-12.0 fl Normal MPV 10.1 LAB L100.2100 47-70 % Normal NEUT% 62.7 LAB L100.2200 19-41 % Normal LY% 24.9 LAB L100.2300 0-10 % Normal MONO% 9.9 LAB L100.2400 0-5 % Normal EO% 2.0 LAB L100.2500 0-1 % Normal BASO% 0.3 LAB L100.2550 0.0-0.9 % Normal IM GRAN % 0.200 Result Comment: IG% - Immature Granulocytes (promyelocytes, myelocytes and metamyelocytes) > 1% indicates that a LEFT SHIFT is Present. LAB L100.2620 2.0-7.7 X10 3/uL Normal Absolute Neut 4.1 LAB L100.2720 0.83-4.51 X10 3/ul Normal Absolute Lymph 1.63 Performed By: #### L100.0100 #### [facility] [address] [place], [address] COMPREHENSIVE METABOLIC Collected: 10/14/2017 Status: F Source: [facility] 4:33 PM [facility] REPOSITORY TYPE CODE TESTS RESULT OUT OF RANGE REFERENCE UNITS LAB L501.0100 74-106 mg/dL Normal GLU 97 Result Comment: Please note revised GLUCOSE reference range effective 2017. LAB L501.1000 7-18 mg/dL Normal BUN 11 LAB L501.1100 0.70-1.30 mg/dL High CREAT,SERUM 1.50 Result Comment: The validity of the calculated GFR AND GFRAA in patients over 70 years has not been determined. Clinical correlation is essential. LAB L501.1110 >60 mL/min Low EST GFR 51 Result Comment: Non- GFR Calc LAB L501.1115 >60 mL/min Normal EST GFR - AA 61 Result Comment: GFR Calc LAB L501.1300 10-20 RATIO Low BUN/CRE 7.3 LAB L501.1500 6.4-8.2 g/dL Normal T PROT 8.0 LAB L501.1800 3.2-5.0 g/dL Normal ALB 3.5 LAB L501.1950 2.2-4.2 g/dL High GLOB 4.5 LAB L501.2000 0.9-2.4 RATIO Low A/G 0.8 LAB L501.2200 8.5-10.1 mg/dL Low CA 8.3 LAB L501.4100 15-37 U/L Normal AST 33 LAB L501.4305 45-117 U/L Normal ALK P 71 LAB L501.4405 16-61 U/L Normal ALT 42 Result Comment: Please note revised ALT reference range effective 2017. LAB L501.4600 0.20-1.00 mg/dL Normal T BILI 0.60 LAB L501.5300 136-145 mmol/L Normal NA 139 LAB L501.5600 3.5-5.1 mmol/L Normal K 3.7 LAB L501.5900 98-107 mmol/L Normal CL 105 LAB L501.6100 21.0-32.0 mmol/L Normal CO2 25.0 LAB L501.6200 5-15 Normal GAP 9 Performed By: #### L500.4050, L501.1400, L501.9520, L501.9910 #### [facility] [address] [place], [address] URIC ACID Collected: 10/14/2017 Status: F Source: [facility] 4:33 PM [facility] REPOSITORY TYPE CODE TESTS RESULT OUT OF RANGE REFERENCE UNITS LAB L501.1400 3.5-7.2 mg/dL Low URIC 3.0 Result Comment: The drugs N-Acetylcysteine and Metamizole may falsely depress this assay. Performed By: #### L500.4050, L501.1400, L501.9520, L501.9910 #### [facility] [address] [place], [place], [id number] THYROID STIM HORMONE Collected: 10/14/2017 Status: F Source: [facility] (T[facility]) 4:33 PM [facility] REPOSITORY TYPE CODE TESTS RESULT OUT OF RANGE REFERENCE UNITS LAB L501.9520 0.358-3.74 uIU/mL Normal TSH 1.81 Performed By: #### L500.4050, L501.1400, L501.9520, L501.9910 #### [facility] [address] [place], [place], [address] PSA,TOTAL - ANNUAL Collected: 10/14/2017 Status: F Source: [facility] SCREEN 4:33 PM [facility] REPOSITORY TYPE CODE TESTS RESULT OUT OF REFERENCE UNITS RANGE LAB L501.9910 0.00-4.00 ng/mL High PSA,TOT 7.28 SCREEN Result Comment: This test was performed using the TPSA assay method for the [employer] chemistry system. Values obtained with different assay methods cannot be used interchangably. When changing PSA assays in the course of monitoring a patient, additional sequential testing should be carried out to confirm baseline values. Performed By: #### L500.4050, L501.1400, L501.9520, L501.9910 #### [facility] [address] [place], [place], [address] HEPATITIS C ANTIBODIES Collected: 10/14/2017 Status: F Source: [facility] 4:33 PM [facility] REPOSITORY TYPE CODE TESTS RESULT OUT OF RANGE REFERENCE UNITS LAB L3100.0650 0.0-0.9 s/co ratio Normal HEP C AB <0.1 Result Comment: Negative: < 0.8 Indeterminate: 0.8 - 0.9 Positive: > 0.9 The CDC recommends that a positive HCV antibody result be followed up with a HCV Nucleic Acid Amplification test (466915). Performed at: [facility] [id number] Water Sponger: Buck Wyatt PhD, Phone: [phone] Performed By: #### L3100.0625 #### [facility] (refer to report for specific site) refer to report for address and phone number PROTEIN+CREATININE Collected: Status: F Source: [facility] PAREKH,URINE 09/20/2017 12:29 PM [facility] REPOSITORY TYPE CODE TESTS RESULT OUT OF RANGE REFERENCE UNITS LAB L501.1200 NO RANGE EST. mg/dL < Normal UR 13.00 CREAT LAB L501.1930 <11.9 mg/dL < 6.0 Normal PROTEIN,UR. RAN. LAB L501.1940 0-200 mg/g CRE Test Normal not performed PROT:CRE RATIO Performed By: #### L501.0900 #### [facility] [address] [place], [place], [id number] RENAL PROFILE Collected: 09/20/2017 Status: F Source: [facility] 12:29 PM [facility] REPOSITORY TYPE CODE TESTS RESULT OUT OF RANGE REFERENCE UNITS LAB L501.0100 74-106 mg/dL Normal GLU 89 Result Comment: Please note revised GLUCOSE reference range effective 2017. LAB L501.1000 7-18 mg/dL High BUN 23 LAB L501.1100 0.70-1.30 mg/dL High CREAT,SERUM 1.58 Result Comment: The validity of the calculated GFR AND GFRAA in patients over 70 years has not been determined. Clinical correlation is essential. LAB L501.1110 >60 mL/min Low EST GFR 48 Result Comment: Non- GFR Calc LAB L501.1115 >60 mL/min Low EST GFR - AA 58 Result Comment: GFR Calc LAB L501.1300 10-20 RATIO Normal BUN/CRE 14.6 LAB L501.1800 3.2-5.0 g/dL Normal ALB 3.9 LAB L501.2200 8.5-10.1 mg/dL CA Normal 8.7 LAB L501.2300 2.5-4.9 mg/dL Normal PHOS 3.4 LAB L501.5300 136-145 mmol/L Low NA 132 LAB L501.5600 3.5-5.1 mmol/L K Normal 3.8 LAB L501.5900 98-107 mmol/L CL Normal 99 LAB L501.6100 21.0-32.0 mmol/L Normal CO2 23.0 Performed By: #### L500.3600 #### [facility] [address] [place] [address]. [place], [place], [address] ALLERGIES ALLERGIES DATE TYPE / CODE NAME / CODE REACTION SEVERITY SOURCE 05/30/2018 Drug No Known Unknown [facility] Allergy/4160 Allergies/F00 Hospital [address](SNOMED [id number](RXNOR Repository CT) M) ENCOUNTERS ENCOUNTERS ADMIT/DISCHARGE ACCOUNT ADMITTING ENCOUNTER LOCATION SOURCE NUMBER CLASS 07/23/2018 [id number] [place] [facility] ing:LAB Repository 07/14/2018 [id number] Amb[place] [facility] ing:LAB Repository 06/20/2018 [id number] Ambulatory [place] 5 [facility] ing:CT Repository 06/06/2018/ [id number] Ambulatory [place] 8 2 [facility] ing:SDCRoom: Repository AC12 06/03/2018 [id number] Amb[place] [facility] ing:LAB.FUTUR Repository E 03/25/2018 [id number] Ambulatory [place] 1 [facility] ing:NM Repository 03/11/2018 [id number] Amb[place] [facility] ing:LABSPEC Repository 02/13/2018 [id number] Amb[place] [facility] ing:LAB Repository 10/14/2017 [id number] Ambulatory [place] 3 [facility] ing:POLAB3 Repository 09/20/2017 [id number] Ambulatory [place] 1 [facility] ing:MTLAB Repository PAYERS PAYERS ENCOUNTER GUARANTOR PAYER SUBSCRIBER SOURCE 07/23/2018 NORBERTO [id number] Primary [place]RE A [place] Insurance:MEDICAL GOFFDOB: [facility] [id number] Hospital [address]Ako: (330) Number: Repository [phone] () [id number] Date:[id number] [place] [id number]: 07/23/2018 Secondary NOT GIVENUNK [place] Insurance:SELF PAY [facility] Number: Effective Repository Date:2018-07-23 07/14/2018 NORBERTO Michelle [id number] Primary [place] A [place] Insurance:MEDICAL GOFFDOB: [facility] [id number] Hospital [address]Vxf: (330) Number: Repository [phone] () [id number] Date:2780-62-92XY [address] [address]RI: 07/14/2018 Secondary NOT GIVENUNK [place] Insurance:SELF PAY [facility] Number: Effective Repository Date:2018-07-14 06/20/2018 NORBERTO Michelle [id number] Primary [place] A [place] Insurance:MEDICAL GOFFDOB: [facility] [id number] Hospital [address]Uij: (330) Number: Repository [phone] () [id number] Date:6428-95-84UG [address] [address]RW: 06/20/2018 Secondary NOT GIVENUNK [place] Insurance:SELF PAY [facility] Number: Effective Repository Date:2018-05-29 06/06/2018 NORBERTO A [id number] Primary [place] A [place] Insurance:MEDICAL GOFFDOB: [facility] [id number] Hospital [address]Lgm: (330) Number: Repository [phone] () [id number] Date:[id number] [address] [address]UJ: 06/06/2018 Secondary NOT GIVENUNK [place] Insurance:SELF PAY [facility] Number: Effective Repository Date:2018-05-12 06/03/2018 NORBERTO A [id number] Primary A[place]RE A [place] Insurance:MEDICAL GOFFDOB: [facility] [id number] Hospital [address]Hsx: (330) Number: Repository [phone] () [id number] Date:6204-35-19UC [address] [address]EE: 06/03/2018 Secondary NOT GIVENUNK [place] Insurance:SELF PAY [facility] Number: Effective Repository Date:2018-06-03 03/25/2018 NORBERTO A [id number] Primary ALEX[place]RE A [place] Insurance:MEDICAL GOFFDOB: [facility] [id number] Hospital [address]Uag: (330) Number: Repository [phone] () [id number] Date:2561-16-26QT [address] [address]WZ: 03/25/2018 Secondary NOT GIVENUNK [place] Insurance:SELF PAY [facility] Number: Effective Repository Date:2018-03-19 03/11/2018 NORBERTO A [id number] Primary [place] A [place] Insurance:MEDICAL GOFFDOB: [facility] [id number] [address]Tel: (330) Number: Repository [phone] () [id number] Date:2016-36-41MH [address] [address]TQ: 03/11/2018 Secondary NOT GIVENUNK [place] Insurance:SELF PAY [facility] Number: Effective Repository Date:2018-03-11 02/13/2018 NORBERTO A [id number] Primary [place] A [place] Insurance:MEDICAL GOFFDOB: [facility] [id number] [address]Tel: (330) Number: Repository [phone] () [id number] Date:6535-62-06YM [place] [id number]: 02/13/2018 Secondary NOT GIVENUNK [place] Insurance:SELF PAY [facility] Number: Effective Repository Date:2018-02-13 10/14/2017 Norberto [id number] Primary ALEXANDRE GOFFDOB: [place] Insurance:MEDICAL [id number] [address]Svt: Number: Repository [id number] (HP) Date:[id number] [address]TP: 10/14/2017 Secondary NOT GIVENUNK [place] Insurance:SELF PAY [facility] Number: Effective Repository Date:2017-10-14 09/20/2017 Norberto [id number] Primary ALEXANDRE GOFFDOB: [place] Insurance:MEDICAL [id number] [facility] [address]Bcm: Number: Repository [id number] (HP) Date:1050-38-10HD[address] [address]FB: 09/20/2017 Secondary NOT GIVENUNK [place] Insurance:SELF PAY [facility] Number: Effective Repository Date:2017-09-20
== END ==
PROVIDERS: Family Provider Family Medicine Geriatric Medicine; PCP Family Medicine Geriatric Medicine; Referring Provider Internal Medicine Nephrology; Visit Provider Internal Medicine Nephrology
DX: N18.3 Chronic kidney disease, stage 3 (moderate) (principal)
CPT/HCPCS: 36415; 80069; 82570; 84156

== ENCOUNTER → 2018-07-23 12:52 | Outpatient (CLI) | payer OTHER, SELFPAY ==
[2018-07-23 14:20] LABS: Absolute Neutrophil Count 3.4 X10^3/uL (2.0-7.7); Basophil# 0.01 X10^3/uL; Basophil% 0.2 % (0-1); Eosinophil# 0.09 X10^3/uL; Eosinophils% 1.9 % (0-5); Hematocrit 42.5 % (40-54); Hemoglobin 14.5 g/dl (13.0-16.5); Lymphocyte % 10.8 % (19-41); Mean Corp Hgb Conc 34.1 g/gl (32-36); Mean Corpuscular Hgb 29.2 pg (27.0-32.0); Mean Corpuscular Volume 85.5 fL (80-94); Mean Platelet Vol. 9.8 fl (6.2-12.0); Monocyte# 0.65 X10^3/uL; Monocyte% 14.1 % (0-10); Neutrophil # 3.37 X10^3/uL (2.7-7.7); Platelet Count 206 K/mm3 (150-450); RBC Distribution Width CV 13.3 % (11.6-14.6); RBC Distribution Width SD 41.8 fl (35.1-43.9); Red Blood Count 4.97 M/mm3 (4.6-6.2); White Blood Count 4.6 K/mm3 (4.4-11.0)
[2018-07-23 14:21] LABS: Differential Indicated SCAN CRITERIA MET; POSITIVE COUNT NO; POSITIVE DIFFERENTIAL YES; POSITIVE MORPHOLOGY NO
--- OUTSIDE RECORDS SUMMARY | 2018-09-08 16:32 | XMS RPT_ITS ---
:1955 Author Organization OHIP Support Name Relationship Address Phone ALEXANDRE GREY Unavailable [address] + [place] [address] SEACO Unavailable [address] + [place] [address] QUE, ALEXANDRE Unavailable [address] + [place] [address] SEACO Unavailable [address] + [place] [address] QUE, ALEXANDRE Unavailable [address] + [place] [address] SEACO Unavailable [address] + [place] [address] QUE, ALEXANDRE Unavailable [address] + [place] [address] SEACO Unavailable [address] + [place] [address] QUE, ALEXANDRE Unavailable [address] + [place] [address] SEACO Unavailable [address] + [place] [address] QUE, ALEXANDRE Unavailable [address] + [place] [address] SEACO Unavailable [address] + [place] [address] QUE, ALEXANDRE Unavailable [address] + [place] [address] SEACO Unavailable [address] + [place] [address] QUE, ALEXANDRE Unavailable [address] + [place] [address] SEACO Unavailable [address] + [place] [address] QUE, ALEXANDRE Unavailable [address] + [place] [address] SEACO Unavailable [address] + [place] [address] QUE, ALEXANDRE Unavailable [address] + [place] [address] SEACO Unavailable [address] + [place] [address] QUE, ALEXANDRE Unavailable [address] + [place] [address] SEACO Unavailable [address] + [place] [address] Care Team Providers Name Role Phone Yong Sears Attending Unavailable Yong Sears Referring Unavailable Jose Antonio, Manan Chi Primary Care Unavailable Yong Sears Attending Unavailable SeiderYong Referring Unavailable Jose Antonio, Manan Chi Primary [...] Unknown C61 - Malignant Yong Sears Active [facility] C61(ICD-10) Repository PROCEDURES PROCEDURES No Procedure Records FoundRESULTS RESULTS CBC W/DIFF, AUTOMATED Collected: 08/15/2018 Status: F Source: [place] 12:47 PM [facility] REPOSITORY TYPE CODE TESTS RESULT OUT OF RANGE REFERENCE UNITS LAB L100.1000 4.4-11.0 K/mm3 Normal WBC 5.2 LAB L100.1200 4.6-6.2 M/mm3 Low RBC 4.35 LAB L100.1300 13.0-16.5 g/dl Low HGB 12.7 LAB L100.1400 40-54 % Low HCT 37.4 LAB L100.1500 80-94 fL Normal MCV 86.0 LAB L100.1600 27.0-32.0 pg Normal MCH 29.2 LAB L100.1700 32-36 g/gl Normal MCHC 34.0 LAB L100.1810 11.6-14.6 % Normal RDW CV 14.1 LAB L100.1820 35.1-43.9 fl High RDW SD 44.1 LAB L100.1900 150-450 K/mm3 Normal PLT 251 LAB L100.2000 6.2-12.0 fl Normal MPV 9.1 LAB L100.2100 47-70 % High NEUT% 73.8 LAB L100.2200 19-41 % Normal LY% 19.6 LAB L100.2300 0-10 % Normal MONO% 5.2 LAB L100.2400 0-5 % Normal EO% 1.2 LAB L100.2500 0-1 % Normal BASO% 0.2 LAB L100.2550 0.0-0.9 % Normal IM GRAN % 0.000 Result Comment: IG% - Immature Granulocytes (promyelocytes, myelocytes and metamyelocytes) > 1% indicates that a LEFT SHIFT is Present. LAB L100.2620 2.0-7.7 X10 3/uL Normal Absolute Neut 3.8 LAB L100.2720 0.83-4.51 X10 3/ul Normal Absolute Lymph 1.01 Performed By: #### L100.0100 #### [facility] [address] [place], [address] CBC W/DIFF, AUTOMATED Collected: 07/23/2018 Status: F Source: [place] 12:56 PM [facility] REPOSITORY TYPE CODE TESTS RESULT OUT OF [...] LYMPHOPENIA NOTED. Performed By: #### L100.0100 #### [facility] [address] [place], [place], [address] PROTEIN+CREATININE Collected: Status: F Source: [facility],URINE 07/14/2018 12:48 PM [facility] REPOSITORY TYPE CODE TESTS RESULT OUT OF RANGE REFERENCE UNITS LAB L501.1200 NO RANGE EST. mg/dL 17.50 Normal UR CREAT LAB L501.1930 <11.9 mg/dL < 6.0 Normal PROTEIN,UR. RAN. LAB L501.1940 0-200 mg/g CRE Test Normal not performed PROT:CRE RATIO Performed By: #### L501.0900 #### [facility] [address] [place], [address] RENAL PROFILE Collected: 07/14/2018 Status: F Source: [place] 12:48 PM [facility] REPOSITORY TYPE CODE TESTS RESULT OUT OF [...] CO2 24.0 Performed By: #### L500.3600 #### [facility] [address] [facility], [place], [address] CREATININE FINGERSTICK Collected: 06/20/2018 Status: F Source: [place] 11:18 AM [facility] REPOSITORY TYPE CODE TESTS RESULT OUT OF REFERENCE UNITS RANGE LAB L9100.0210 0.70-1.30 mg/dL High CREATININE WB 1.6 LAB L9100.0220 >60 mL/min Low EGFR WB 58.0000 Performed By: #### L9100.0200 #### [facility] Point of Care [address] [place] [address]. [place] [address] PELVIS WITH IV Observed: 06/20/2018 Status: F Source: [place] CONTRAST 10:45 AM [facility] REPOSITORY [facility] [place] [address] Pelvis WITH IV Contrast MR#: [id number] Acct: [id number] Name: NORBERTO GREY Rep #: [id number] : 1955 M 62 From: Andrea Banegas MD PCP: Jose Antonio ROGER,Manan Varner Status: REG CLI Study: Pelvis WITH IV Contrast Date of Exam: 06/20/18 Exam# [id number] Ordering Dr: Yong Sears MD STUDY: CT [...] Andrea Banegas MD at 8:26 EST Tel [phone], Service support , CC: Yong Sears MD; Manan Brady MD Hat Sizer: Signed CBC W/DIFF, AUTOMATED Collected: 06/19/2018 Status: F Source: [place] 10:32 AM [facility] REPOSITORY TYPE CODE TESTS RESULT OUT OF [...] Lymph 1.42 Performed By: #### L100.0100 #### [facility] [address], [place], [address] SERUM CREATININE AND Collected: 06/19/2018 Status: F Source: [place] GFR 10:32 AM [facility] REPOSITORY TYPE CODE TESTS RESULT OUT OF [...] Calc Performed By: #### L501.1105, L501.9940 #### [facility] [address] [place], [address] PSA,TOTAL- DIAGNOSTIC Collected: 06/19/2018 Status: F Source: [place] 10:32 AM [facility] REPOSITORY TYPE CODE TESTS RESULT OUT OF REFERENCE UNITS RANGE LAB L501.9940 0.0-4.0 ng/mL PSA, High DIAGNOSTIC 7.23 Result Comment: This test was performed using the TPSA assay method for the [employer] chemistry system. Values obtained with different assay methods cannot be used interchangably. When changing PSA assays in the course of monitoring a patient, additional sequential testing should be carried out to confirm baseline values. Performed By: #### L501.1105, L501.9940 #### [facility] [address] [place], [address] OPERATIVE REPORT Observed: 06/06/2018 Status: F Source: [place] 2:03 PM [facility] REPOSITORY [facility] Medical Records Department [address] [facility] [place] [address] Operative Report 06/06/18 1358 MR#: [id number] Acct: [id number] Name: NORBERTO GREY Rep #: [id number] : 1955 62 From: Supa Cooper MD PCP: Jose Antonio ROGER,Manan Varner Status: [facility] Y Location: [place] [address] Report of Operation Date of Procedure: 06/06/18 [...] DISCHARGE INSTRUCTION Observed: 06/06/2018 Status: F Source: [place] 1:58 PM [facility] REPOSITORY [facility] Medical Records Department [address] [place] [address] Instructions for Home/Discharge Instructions 06/06/18 1358 MR#: [id number] Acct: [id number] Name: NORBERTO GREY Rep #: [id number] : 1955 62 From: Supa Cooper MD PCP: Manan Brady MD, Chi Status[place] [facility] [place] Diet: Light diet - advance as [...] Follow Up With: Supa Cooper MD 06/06/18 4283 <Electronically signed by Supa Cooper MD> Date Supa Cooper MD CC: Manan Brady MD BONE SCAN WHOLE Observed: 03/25/2018 Status: F Source: [place] BODY 10:08 AM [facility] REPOSITORY [facility] Imaging Services [address] [place] [address] Bone Scan Whole Body MR#: [id number] Acct: [id number] Name: NORBERTO GREY Rep #: [id number] : 1955 M 62 From: Herminio Owens DO PCP: Jose Antonio ROGER,Manan Varner Status: REG CLI Study: Bone Scan Whole Body Date of Exam: 03/25/18 Exam# [id number] Ordering Dr: Supa Cooper MD CLINICAL: 62-year-old [...] CC: Supa Cooper MD; Manan Brady MD Hat Sizer: Signed PROSTATE BIOPSY Observed: 03/11/2018 Status: F Source: [place] BILATERAL 11:15 AM [facility] REPOSITORY Patient: NORBERTO GREY : 1955 (62/M) Acct Num: [id number] Phys: Kenneth ROGER,Supa Crowe Unit Num: [id number] Loc: [facility] Specimen: [id number] Received: 03/11/189 Spec Type: PROST BX TISSUES TISSUES: A. PROSTATE RIGHT - RIGHT APEX B. PROSTATE RIGHT - RIGHT MID C. PROSTATE RIGHT - RIGHT BASE D. PROSTATE LEFT - LEFT APEX E. PROSTATE LEFT - LEFT MID F. PROSTATE LEFT - LEFT BASE COMMENT B, C AND F - Immunohistochemistry ([id number]) supports the above diagnosis. D. The tumor [...] one cassette. / SJ:keon 03/12/18 TC:0 CPT: 56838 x6 HEADER OPERATION: Prostate biopsy PRE-OP DIAGNOSIS: [...] base, core biopsy: Minute foci of adenocarcinoma: [place] grade: 3+3=6 Number of cores involved: 2 out of 2 Proportion of tissue involved: <5% Perineural invasion: Not identified. Greatest tumor length: 0.7 cm, discontinuous. Focal high-grade prostatic intraepithelial neoplasia (HGPIN). See comment. D. Left prostate, apex, core biopsy: Prostatic adenocarcinoma: [place] grade: 3+4=7 Number of cores involved: 1 out of 1 Proportion of tissue involved: 60%, discontinuous Perineural invasion: Not identified. Greatest tumor length: 0.6 cm See comment. E. Left prostate, mid, core biopsy: Prostatic adenocarcinoma: [place] grade: 3+3=6 Number of cores involved: 2 out of 2 Proportion of tissue involved: ~25% Perineural invasion: Not identified. Greatest tumor length: 0.3 cm F. Left prostate, base, core biopsy: Minute foci of adenocarcinoma: [place] grade: 3+4=7 Number of cores involved: 2 out of 2 Proportion of tissue involved: <5% Perineural invasion: Not identified. Greatest tumor length: 0.1 cm See comment. SJ:keon 03/13/18 Signed Basil Linares 03/14/18 <signature on file> Performed By: #### PPROSBIL #### [facility] [address] [place] [address]. [address], [place], [address] IMMUNOHISTOCHEMISTRY Observed: 03/11/2018 Status: F Source: [place] 12:00 AM [facility] REPOSITORY Patient: NORBERTO GREY : 1955 (62/M) Acct Num: [id number] Phys: Kenneth ROGER,Supa Crowe Unit Num: [id number] Loc: [facility] Specimen: [id number] Received: 03/13/18 - 1117 Spec Type: IMMUNO TISSUES TISSUES: B. PROSTATE RIGHT C. PROSTATE RIGHT F. PROSTATE LEFT SPECIMEN INFORMATION: Tissue Source: B - Right prostate, mid, C - Right prostate, base, F - Left prostate, base Clinical Info: Elevated PSA Specimen Number: [id number] B, C AND F CPT code: 31390, 65920 x5 METHODOLOGY: Deparaffinized sections of prefer/formalin-fixed tissue [...] developed and their performance characteristics determined by [facility]. They may not have been [...] of adenocarcinoma. SJ:keon 03/14/18 [facility] [address] [address] Signed Basil Albarranin 03/14/18 <signature on file> Performed By: #### PIMM #### [facility] [address] [place], [address] PSA,TOTAL- DIAGNOSTIC Collected: 02/13/2018 Status: F Source: [place] 10:46 AM [facility] REPOSITORY TYPE CODE TESTS RESULT OUT OF REFERENCE UNITS RANGE LAB L501.9940 0.0-4.0 ng/mL PSA, High DIAGNOSTIC 7.86 Result Comment: This test was performed using the TPSA assay method for the [employer] chemistry system. Values obtained with different assay methods cannot be used interchangably. When changing PSA assays in the course of monitoring a patient, additional sequential testing should be carried out to confirm baseline values. Performed By: #### L501.9940 #### [facility] [address] [place], [address] CBC W/DIFF, AUTOMATED Collected: 10/14/2017 Status: F Source: [place] 4:33 PM [facility] REPOSITORY TYPE CODE TESTS RESULT OUT OF [...] Lymph 1.63 Performed By: #### L100.0100 #### [facility] [address], [place], [address] COMPREHENSIVE METABOLIC Collected: 10/14/2017 Status: F Source: [facility] 4:33 PM [facility] REPOSITORY TYPE CODE TESTS RESULT OUT OF [...] By: #### L500.4050, L501.1400, L501.9520, L501.9910 #### [facility] [address] [place], [address] URIC ACID Collected: 10/14/2017 Status: F Source: [place] 4:33 PM [facility] REPOSITORY TYPE CODE TESTS RESULT OUT OF RANGE REFERENCE UNITS LAB L501.1400 3.5-7.2 mg/dL Low URIC 3.0 Result Comment: The drugs N-Acetylcysteine and Metamizole may falsely depress this assay. Performed By: #### L500.4050, L501.1400, L501.9520, L501.9910 #### [facility] [address], [place], [address] THYROID STIM HORMONE Collected: 10/14/2017 Status: F Source: [place] (TSH) 4:33 PM [facility] REPOSITORY TYPE CODE TESTS RESULT OUT OF RANGE REFERENCE UNITS LAB L501.9520 0.358-3.74 uIU/mL Normal TSH 1.81 Performed By: #### L500.4050, L501.1400, L501.9520, L501.9910 #### [facility] [address] [place], [address] PSA,TOTAL - ANNUAL Collected: 10/14/2017 Status: F Source: [place] SCREEN 4:33 PM [facility] REPOSITORY TYPE CODE TESTS RESULT OUT OF REFERENCE UNITS RANGE LAB L501.9910 0.00-4.00 ng/mL High PSA,TOT 7.28 SCREEN Result Comment: This test was performed using the TPSA assay method for the [employer] chemistry system. Values obtained with different assay methods cannot be used interchangably. When changing PSA assays in the course of monitoring a patient, additional sequential testing should be carried out to confirm baseline values. Performed By: #### L500.4050, L501.1400, L501.9520, L501.9910 #### [facility] [address] [facility]. [address], [place], [address] HEPATITIS C ANTIBODIES Collected: 10/14/2017 Status: F Source: [place] 4:33 PM [facility] REPOSITORY TYPE CODE TESTS RESULT OUT OF RANGE REFERENCE UNITS LAB L3100.0650 0.0-0.9 s/co ratio Normal HEP C AB <0.1 Result Comment: Negative: < 0.8 Indeterminate: 0.8 - 0.9 Positive: > 0.9 The CDC recommends that a positive HCV antibody result be followed up with a HCV Nucleic Acid Amplification test (473575). Performed at: - [facility] [id number] Accounting Officer: Buck Wyatt PhD, Phone: [phone] Performed By: #### L3100.0625 #### [facility] (refer to report for specific site) refer to report for address and phone number PROTEIN+CREATININE Collected: Status: F [facility] 12:29 PM [facility] REPOSITORY TYPE CODE TESTS RESULT OUT OF RANGE REFERENCE UNITS LAB L501.1200 NO RANGE EST. mg/dL < Normal UR 13.00 CREAT LAB L501.1930 <11.9 mg/dL < 6.0 Normal PROTEIN,UR. RAN. LAB L501.1940 0-200 mg/g CRE Test Normal not performed PROT:CRE RATIO Performed By: #### L501.0900 #### [facility] [address], [place], [address] RENAL PROFILE Collected: 09/20/2017 Status: F Source: [place] 12:29 PM [facility] REPOSITORY TYPE CODE TESTS RESULT OUT OF [...] CO2 23.0 Performed By: #### L500.3600 #### [facility] [address] [place], [address] ALLERGIES ALLERGIES DATE TYPE / CODE NAME / CODE REACTION SEVERITY SOURCE 05/30/2018 Drug No Known Unknown [facility] Allergy/4160 Allergies/F00 Hospital 16048(SNOMED 1622446(RXNOR Repository CT) M) ENCOUNTERS ENCOUNTERS ADMIT/DISCHARGE ACCOUNT ADMITTING ENCOUNTER LOCATION SOURCE NUMBER CLASS 08/15/2018 [id number] Ambulatory [place] 6 [facility] ing:LAB Repository 07/23/2018 [id number] [facility] ing:LAB Repository 07/14/2018 [id number] Ambulatory [place] 9 [facility] ing:LAB Repository 06/20/2018 [id number] Ambulatory [place] 5 [facility] ing:CT Repository 06/06/2018/ [id number] Ambulatory [place] 8 2 [facility] ing:SDCRoom: Repository AC12 06/03/2018 [id number] Ambulatory [place] 7 [facility] ing:LAB.FUTUR Repository E 03/25/2018 [id number] Ambulatory [place] 1 [facility] ing:NM Repository 03/11/2018 [id number] Ambulatory [place] 5 [facility] ing:LABSPEC Repository 02/13/2018 [id number] Ambulatory [place] 8 [facility] ing:LAB Repository 10/14/2017 [id number] Ambulatory [place] 3 [facility] ing:POLAB3 Repository 09/20/2017 [id number] Ambulatory [place] 1 [facility] ing:MTLAB Repository PAYERS PAYERS ENCOUNTER GUARANTOR PAYER SUBSCRIBER SOURCE 08/15/2018 NORBERTO [id number] Primary ALEXANDRE A [place] Insurance:MEDICAL GOFFDOB: [facility] [id number] [id number]: (330) Number: Repository [phone] () [id number] Date:2876-95-82EN[address] [address]XK: 08/15/2018 Secondary NOT GIVENUNK [place] Insurance:SELF PAY [facility] Number: Effective Repository Date:2018-08-15 07/23/2018 NORBERTO GREY5275 Primary ALEXANDRE A [place] Insurance:MEDICAL GOFFDOB: [facility] [id number] [id number]: [phone]) Number: Repository [phone] () [id number] Date:3000-85-34IT [address] [address]MN: 07/23/2018 Secondary NOT GIVENUNK [place] Insurance:SELF PAY [facility] Number: Effective Repository Date:2018-07-23 07/14/2018 NORBERTO GREY5275 Primary ALEXANDRE A [place] Insurance:MEDICAL GOFFDOB: [facility] [id number] Hospital [address]Xnu: (330) Number: Repository [phone] () [id number] Date:1564-40-97BM [address] [address]XG: 07/14/2018 Secondary NOT GIVENUNK [place] Insurance:SELF PAY [facility] Number: Effective Repository Date:2018-07-14 06/20/2018 NORBERTO A [id number] Primary ALEXANDRE A [place] Insurance:MEDICAL GOFFDOB: [facility] [id number] [address]Tel: (330) Number: Repository [phone] () [id number] Date:2552-20-25CQ [address] [address]XS: 06/20/2018 Secondary NOT GIVENUNK [place] Insurance:SELF PAY [facility] Number: Effective Repository Date:2018-05-29 06/06/2018 NORBERTO A [id number] Primary ALEXANDRE A [place] Insurance:MEDICAL GOFFDOB: [facility] [id number] Hospital [address]Dzs: (330) Number: Repository [phone] () [id number] Date:6866-14-00ZJ [address] [address]JH: 06/06/2018 Secondary NOT GIVENUNK [place] Insurance:SELF PAY [facility] Number: Effective Repository Date:2018-05-12 06/03/2018 NORBERTO A [id number] Primary ALEXANDRE A [place] Insurance:MEDICAL GOFFDOB: [facility] [id number] Hospital [address]Gbw: (330) Number: Repository [phone] () [id number] Date:6726-35-23GA [address] [address]CF: 06/03/2018 Secondary NOT GIVENUNK [place] Insurance:SELF PAY [facility] Number: Effective Repository Date:2018-06-03 03/25/2018 NORBERTO A [id number] Primary ALEXANDRE A [place] Insurance:MEDICAL GOFFDOB: [facility] [id number] Hospital [id number]: (330) Number: Repository [phone] () [id number] Date:5941-99-96[place]JC[place] [address]WP: 03/25/2018 Secondary NOT GIVENUNK [place] Insurance:SELF PAY [facility] Number: Effective Repository Date:2018-03-19 03/11/2018 NORBERTO [id number] Primary ALEXANDRE A [place] Insurance:MEDICAL GOFFDOB: [facility] [id number] Hospital [address]Tvv: (330) Number: Repository [phone] () [id number] Date:7310-00-27FGEl[place] [address]WP: 03/11/2018 Secondary NOT GIVENUNK [place] Insurance:SELF PAY [facility] Number: Effective Repository Date:2018-03-11 02/13/2018 NORBERTO Martinez [id number] Primary ALEXANDRE A [place] Insurance:MEDICAL GOFFDOB: [facility] [id number] Hospital [address]Rfm: (330) Number: Repository [phone] () [id number] Date:8960-27-13YX[address] [address]DX: 02/13/2018 Secondary NOT GIVENUNK [place] Insurance:SELF PAY [facility] Number: Effective Repository Date:2018-02-13 10/14/2017 Norberto [id number] Primary ALEXANDRE GOFFDOB: [place] Insurance:MEDICAL [id number] [address]Vco: Number: Repository [id number] (HP) Date:0428-66-85HR[address] [address]CD: 10/14/2017 Secondary NOT GIVENUNK [place] Insurance:SELF PAY [facility] Number: Effective Repository Date:2017-10-14 09/20/2017 Norberto Acostaff5275 Primary ALEXANDRE GOTAMMYDOB: [place] Insurance:MEDICAL [id number] [facility] [address]Zju: Number: Repository [id number] (HP) Date:7260-58-74EZ[address] [address]XH: 09/20/2017 Secondary NOT GIVENUNK [place] Insurance:SELF PAY [facility] Number: Effective Repository Date:2017-09-20
== END ==
PROVIDERS: Family Provider Family Medicine Geriatric Medicine; PCP Family Medicine Geriatric Medicine; Referring Provider Radiology Radiation Oncology; Visit Provider Radiology Radiation Oncology
DX: C61 Malignant neoplasm of prostate (principal)
CPT/HCPCS: 36415; 85025

== ENCOUNTER → 2018-08-15 12:29 | Outpatient (CLI) | payer OTHER, SELFPAY ==
[2018-06-06 11:20] VITALS: BMI 33.2
[2018-08-15 13:25] LABS: Absolute Lymphocyte Count 1.01 X10^3/ul (0.83-4.51); Absolute Neutrophil Count 3.8 X10^3/uL (2.0-7.7); Basophil# 0.01 X10^3/uL; Basophil% 0.2 % (0-1); Eosinophil# 0.06 X10^3/uL; Eosinophils% 1.2 % (0-5); Hematocrit 37.4 % (40-54); Hemoglobin 12.7 g/dl (13.0-16.5); Lymphocyte # 1.01 X10^3/ul (4.0); Lymphocyte % 19.6 % (19-41); Mean Corpuscular Hgb 29.2 pg (27.0-32.0); Mean Platelet Vol. 9.1 fl (6.2-12.0); Monocyte# 0.27 X10^3/uL; Monocyte% 5.2 % (0-10); Neutrophil % 73.8 % (47-70); Platelet Count 251 K/mm3 (150-450); RBC Distribution Width CV 14.1 % (11.6-14.6); RBC Distribution Width SD 44.1 fl (35.1-43.9); Red Blood Count 4.35 M/mm3 (4.6-6.2); White Blood Count 5.2 K/mm3 (4.4-11.0)
[2018-08-15 13:26] LABS: POSITIVE COUNT NO; POSITIVE DIFFERENTIAL NO; POSITIVE MORPHOLOGY NO
== END ==
PROVIDERS: Family Provider Family Medicine Geriatric Medicine; PCP Family Medicine Geriatric Medicine; Referring Provider Radiology Radiation Oncology; Visit Provider Radiology Radiation Oncology
DX: C61 Malignant neoplasm of prostate (principal)
CPT/HCPCS: 36415; 85025

== ENCOUNTER → 2018-11-05 16:27 | Outpatient (CLI) | payer OTHER, SELFPAY ==
[2018-11-05 17:17] LABS: Albumin, Serum 3.6 g/dL (3.2-5.0); BUN 24 mg/dL (7-18); Calcium,Total 8.6 mg/dL (8.5-10.1); Chloride 107 mmol/L (98-107); Creatinine, Serum 1.84 mg/dL (0.70-1.30); EST Glomerular Filtration Rate 40 mL/min (>60); Est Glom Filt Rate - Afr Amer 48 mL/min (>60); Glucose 93 mg/dL (74-106); Phosphorus 3.7 mg/dL (2.5-4.9); Sodium Level 140 mmol/L (136-145)
== END ==
PROVIDERS: Family Provider Family Medicine Geriatric Medicine; PCP Family Medicine Geriatric Medicine; Referring Provider Internal Medicine Nephrology; Visit Provider Internal Medicine Nephrology
DX: N18.3 Chronic kidney disease, stage 3 (moderate) (principal)
CPT/HCPCS: 36415; 80069

== ENCOUNTER → 2018-11-28 | Outpatient (CLI) | payer OTHER, SELFPAY ==
[2018-06-06 11:20] VITALS: BMI 33.2
[2018-11-28 14:28] LABS: Albumin, Serum 3.7 g/dL (3.2-5.0); BUN 22 mg/dL (7-18); BUN/Creat Ratio 13.6 RATIO (10-20); Chloride 105 mmol/L (98-107); Creatinine, Serum 1.62 mg/dL (0.70-1.30); EST Glomerular Filtration Rate 46 mL/min (>60); Est Glom Filt Rate - Afr Amer 56 mL/min (>60); Glucose 100 mg/dL (74-106); PSA,Total- Diagnostic 0.99 ng/mL (0.0-4.0); Phosphorus 4.7 mg/dL (2.5-4.9); Potassium 4.1 mmol/L (3.5-5.1); Sodium Level 138 mmol/L (136-145)
== END | disposition home or self-care (01) ==
LOC: MTLAB 11:43
PROVIDERS: Family Provider Family Medicine Geriatric Medicine; PCP Family Medicine Geriatric Medicine; Referring Provider Internal Medicine Nephrology; Visit Provider Internal Medicine Nephrology
DX: N18.3 Chronic kidney disease, stage 3 (moderate) (principal); C61 Malignant neoplasm of prostate
CPT/HCPCS: 36415; 80069; 84153

== ENCOUNTER → 2019-05-14 | Outpatient (CLI) | payer OTHER, SELFPAY ==
[2019-05-14 14:16] LABS: Albumin, Serum 3.4 g/dL (3.2-5.0); BUN 18 mg/dL (7-18); BUN/Creat Ratio 11.1 RATIO (10-20); Calcium,Total 8.8 mg/dL (8.5-10.1); Chloride 106 mmol/L (98-107); Creatinine, Serum 1.62 mg/dL (0.70-1.30); EST Glomerular Filtration Rate 46 mL/min (>60); Est Glom Filt Rate - Afr Amer 56 mL/min (>60); Glucose 108 mg/dL (74-106); Phosphorus 3.4 mg/dL (2.5-4.9); Potassium 3.6 mmol/L (3.5-5.1); Sodium Level 140 mmol/L (136-145)
== END | disposition home or self-care (01) ==
LOC: LAB.FUTURE 11:26
PROVIDERS: Family Provider Family Medicine Geriatric Medicine; PCP Family Medicine Geriatric Medicine; Referring Provider Internal Medicine Nephrology; Visit Provider Internal Medicine Nephrology
DX: N18.3 Chronic kidney disease, stage 3 (moderate) (principal)
CPT/HCPCS: 36415; 80069

== ENCOUNTER → 2019-06-02 | Outpatient (CLI) | payer OTHER, SELFPAY ==
[2018-06-06 11:20] VITALS: BMI 33.2
[2019-06-02 14:04] LABS: PSA,Total- Diagnostic 1.43 ng/mL (0.0-4.0)
== END | disposition home or self-care (01) ==
LOC: MTLAB 11:25
PROVIDERS: Family Provider Family Medicine Geriatric Medicine; PCP Family Medicine Geriatric Medicine; Referring Provider Urology; Visit Provider Urology
DX: C61 Malignant neoplasm of prostate (principal)
CPT/HCPCS: 36415; 84153

== ENCOUNTER → 2019-08-20 14:41 | Outpatient (CLI) | payer OTHER, SELFPAY ==
[2019-08-20 16:36] LABS: Absolute Lymphocyte Count 0.72 X10^3/uL (0.83-4.51); Absolute Neutrophil Count 3.7 X10^3/uL (2.0-7.7); Basophil# 0.03 X10^3/uL; Basophil% 0.6 % (0-1); Eosinophil# 0.11 X10^3/uL; Eosinophils% 2.1 % (0-5); Hematocrit 44.3 % (40-54); Hemoglobin 14.7 g/dL (13.0-16.5); Lymphocyte # 0.72 X10^3/ul (4.0); Lymphocyte % 13.6 % (19-41); Mean Corp Hgb Conc 33.2 g/dL (32-36); Mean Corpuscular Hgb 28.7 pg (27.0-32.0); Mean Corpuscular Volume 86.5 fL (80-94); Mean Platelet Vol. 10.1 fl (6.2-12.0); Monocyte# 0.75 X10^3/uL; Monocyte% 14.2 % (0-10); NRBC Flagged by Analyzer 0 % (0-5); Neutrophil # 3.67 X10^3/uL (2.7-7.7); Neutrophil % 69.1 % (47-70); Platelet Count 282 K/mm3 (150-450); RBC Distribution Width CV 14.2 % (11.6-14.6); RBC Distribution Width SD 45.3 fl (35.1-43.9); Red Blood Count 5.12 M/mm3 (4.6-6.2); White Blood Count 5.3 K/mm3 (4.4-11.0)
[2019-08-20 17:02] LABS: ALB/GLOB Ratio 0.8 RATIO (0.9-2.4); AST(SGOT) 24 U/L (15-37); Alanine Aminotransfer ALT/SGPT 39 U/L (16-61); Albumin, Serum 3.6 g/dL (3.2-5.0); Alkaline Phosphatase 66 U/L (45-117); Anion Gap 5 (5-15); BUN 18 mg/dL (7-18); BUN/Creat Ratio 11.2 RATIO (10-20); Calcium,Total 8.9 mg/dL (8.5-10.1); Chloride 104 mmol/L (98-107); Creatinine, Serum 1.61 mg/dL (0.70-1.30); EST Glomerular Filtration Rate 46 mL/min (>60); Est Glom Filt Rate - Afr Amer 56 mL/min (>60); Globulin 4.6 g/dL (2.2-4.2); Glucose 94 mg/dL (74-106); Potassium 3.8 mmol/L (3.5-5.1); Protein, Total 8.2 g/dL (6.4-8.2); Sodium Level 137 mmol/L (136-145); Thyroid Stim Hormone (TSH) 1.98 uIU/mL (0.358-3.74); Uric Acid 3.7 mg/dL (3.5-7.2)
== END ==
PROVIDERS: Family Provider Family Medicine Geriatric Medicine; PCP Family Medicine Geriatric Medicine; Visit Provider Family Medicine Geriatric Medicine
DX: I10 Essential (primary) hypertension (principal); M10.9 Gout, unspecified
CPT/HCPCS: 36415; 80053; 84443; 84550; 85025

== ENCOUNTER → 2019-11-26 | Outpatient (CLI) | payer OTHER, SELFPAY ==
[2018-06-06 11:20] VITALS: BMI 33.2
[2019-11-26 15:38] LABS: PSA,Total- Diagnostic 1.81 ng/mL (0.0-4.0)
== END | disposition home or self-care (01) ==
PROVIDERS: PCP Family Medicine Geriatric Medicine; Referring Provider Urology; Visit Provider Urology
DX: C61 Malignant neoplasm of prostate (principal)
CPT/HCPCS: 36415; 84153

== ENCOUNTER → 2019-12-15 | Outpatient (CLI) | payer OTHER, SELFPAY ==
[2019-12-15 14:59] LABS: Albumin, Serum 3.7 g/dL (3.2-5.0); BUN 17 mg/dL (7-18); BUN/Creat Ratio 11.2 RATIO (10-20); Calcium,Total 8.9 mg/dL (8.5-10.1); Chloride 106 mmol/L (98-107); Creatinine, Serum 1.52 mg/dL (0.70-1.30); EST Glomerular Filtration Rate 49 mL/min (>60); Est Glom Filt Rate - Afr Amer 60 mL/min (>60); Glucose 106 mg/dL (74-106); Phosphorus 3.3 mg/dL (2.5-4.9); Sodium Level 137 mmol/L (136-145)
== END | disposition home or self-care (01) ==
LOC: MTLAB 12:08
PROVIDERS: PCP Family Medicine Geriatric Medicine; Referring Provider Internal Medicine Nephrology; Visit Provider Internal Medicine Nephrology
DX: N18.3 Chronic kidney disease, stage 3 (moderate) (principal)
CPT/HCPCS: 36415; 80069

== ENCOUNTER → 2020-03-22 11:56 | Outpatient (CLI) | payer OTHER, SELFPAY ==
[2020-03-22 15:24] LABS: PSA,Total- Diagnostic 1.07 ng/mL (0.0-4.0)
== END ==
PROVIDERS: PCP Family Medicine Geriatric Medicine; Referring Provider Urology; Visit Provider Urology
DX: C61 Malignant neoplasm of prostate (principal)
CPT/HCPCS: 36415; 84153

== ENCOUNTER → 2020-08-23 13:49 | Outpatient (CLI) | payer OTHER, SELFPAY ==
[2018-06-06 11:20] VITALS: BMI 33.2
[2020-08-23 14:36] LABS: Absolute Lymphocyte Count 0.93 X10^3/uL (0.83-4.51); Absolute Neutrophil Count 3.7 X10^3/uL (2.0-7.7); Basophil# 0.04 X10^3/uL; Basophil% 0.7 % (0-1); Eosinophil# 0.14 X10^3/uL; Eosinophils% 2.6 % (0-5); Hematocrit 42.4 % (40-54); Hemoglobin 14.5 g/dL (13.0-16.5); Lymphocyte # 0.93 X10^3/ul (4.0); Lymphocyte % 16.9 % (19-41); Mean Corp Hgb Conc 34.2 g/dL (32-36); Mean Corpuscular Hgb 29.6 pg (27.0-32.0); Mean Corpuscular Volume 86.5 fL (80-94); Mean Platelet Vol. 9.9 fl (6.2-12.0); Monocyte# 0.65 X10^3/uL; Monocyte% 11.8 % (0-10); NRBC Flagged by Analyzer 0 % (0-5); Neutrophil # 3.71 X10^3/uL (2.7-7.7); Neutrophil % 67.6 % (47-70); Platelet Count 296 K/mm3 (150-450); RBC Distribution Width CV 13.5 % (11.6-14.6); White Blood Count 5.5 K/mm3 (4.4-11.0)
[2020-08-23 15:03] LABS: ALB/GLOB Ratio 0.9 RATIO (0.9-2.4); AST(SGOT) 27 U/L (15-37); Alanine Aminotransfer ALT/SGPT 45 U/L (16-61); Albumin, Serum 3.6 g/dL (3.2-5.0); Alkaline Phosphatase 65 U/L (45-117); Anion Gap 6 (5-15); BUN 15 mg/dL (7-18); Calcium,Total 8.8 mg/dL (8.5-10.1); Chloride 105 mmol/L (98-107); Creatinine, Serum 1.87 mg/dL (0.70-1.30); EST Glomerular Filtration Rate 39 mL/min (>60); Est Glom Filt Rate - Afr Amer 47 mL/min (>60); Globulin 4.1 g/dL (2.2-4.2); Glucose 137 mg/dL (74-106); PSA,Total - Annual Screen 1.19 ng/mL (0.00-4.00); Potassium 3.7 mmol/L (3.5-5.1); Protein, Total 7.7 g/dL (6.4-8.2); Sodium Level 138 mmol/L (136-145); Thyroid Stim Hormone (TSH) 1.59 uIU/mL (0.358-3.74); Uric Acid 2.9 mg/dL (3.5-7.2)
== END ==
PROVIDERS: PCP Family Medicine Geriatric Medicine; Visit Provider Family Medicine Geriatric Medicine
DX: I10 Essential (primary) hypertension (principal); M10.9 Gout, unspecified; Z12.5 Encounter for screening for malignant neoplasm of prostate
CPT/HCPCS: 36415; 80053; 84153; 84443; 84550; 85025; G0103

== ENCOUNTER → 2020-09-13 12:15 | Outpatient (CLI) | payer OTHER, SELFPAY ==
[2018-06-06 11:20] VITALS: BMI 33.2
[2020-09-13 15:36] LABS: PSA,Total- Diagnostic 0.72 ng/mL (0.0-4.0)
== END ==
PROVIDERS: PCP Family Medicine Geriatric Medicine; Referring Provider Urology; Visit Provider Urology
DX: C61 Malignant neoplasm of prostate (principal)
CPT/HCPCS: 36415; 84153

== ENCOUNTER → 2020-09-20 15:00 | Outpatient (CLI) | payer OTHER, SELFPAY ==
[2020-09-20 17:24] LABS: PSA,Total- Diagnostic 0.79 ng/mL (0.0-4.0)
== END ==
PROVIDERS: PCP Family Medicine Geriatric Medicine; Referring Provider Urology; Visit Provider Urology
DX: C61 Malignant neoplasm of prostate (principal)
CPT/HCPCS: 36415; 84153; 84403

== ENCOUNTER → 2020-10-11 12:08 | Outpatient (CLI) | payer OTHER, SELFPAY ==
[2020-10-11 15:36] LABS: Albumin, Serum 3.5 g/dL (3.2-5.0); BUN 20 mg/dL (7-18); BUN/Creat Ratio 11.8 RATIO (10-20); Calcium,Total 8.8 mg/dL (8.5-10.1); Chloride 103 mmol/L (98-107); Creatinine, Serum 1.69 mg/dL (0.70-1.30); EST Glomerular Filtration Rate 44 mL/min (>60); Est Glom Filt Rate - Afr Amer 53 mL/min (>60); Glucose 112 mg/dL (74-106); Phosphorus 3.7 mg/dL (2.5-4.9); Potassium 3.9 mmol/L (3.5-5.1); Sodium Level 137 mmol/L (136-145)
[2020-10-11 15:53] LABS: Protein, Urine (Random) < 6.0 mg/dL (<11.9)
== END ==
PROVIDERS: PCP Family Medicine Geriatric Medicine; Referring Provider Internal Medicine Nephrology; Visit Provider Internal Medicine Nephrology
DX: N18.30 Chronic kidney disease, stage 3 unspecified (principal)
CPT/HCPCS: 36415; 80069; 82570; 84156

== ENCOUNTER 2020-10-20 13:29 | Outpatient (RCR) | payer OTHER, SELFPAY ==
[2018-06-06 11:20] VITALS: BMI 33.2
[2020-10-21] MEDS: COVID-19 VACC, MRNA(PFIZER)/PF 30 MCG/0.3 ML SYRINGE IM (14:46)
[2020-11-11] MEDS: COVID-19 VACC, MRNA(PFIZER)/PF 30 MCG/0.3 ML SYRINGE IM (14:34)
== END 2021-01-17 23:59 ==
LOC: IMMUN 13:29
PROVIDERS: PCP Family Medicine Geriatric Medicine; Referring Provider Family Medicine; Visit Provider Family Medicine
DX: Z23 Encounter for immunization (principal)
CPT/HCPCS: 0001A; 0002A; 91300

== ENCOUNTER → 2021-03-15 10:24 | Outpatient (CLI) | payer OTHER, SELFPAY ==
[2018-06-06 11:20] VITALS: BMI 33.2
[2021-03-15 12:25] LABS: PSA,Total- Diagnostic 0.58 ng/mL (0.0-4.0)
== END ==
PROVIDERS: PCP Family Medicine Geriatric Medicine; Referring Provider Urology; Visit Provider Urology
DX: C61 Malignant neoplasm of prostate (principal)
CPT/HCPCS: 36415; 84153

== ENCOUNTER → 2021-03-21 14:54 | Outpatient (CLI) | payer OTHER, SELFPAY ==
[2018-06-06 11:20] VITALS: BMI 33.2
== END ==
PROVIDERS: PCP Family Medicine Geriatric Medicine; Referring Provider Urology; Visit Provider Urology
DX: E29.1 Testicular hypofunction (principal)
CPT/HCPCS: 36415; 84403

== ENCOUNTER → 2021-04-05 11:59 | Outpatient (CLI) | payer OTHER, SELFPAY ==
[2018-06-06 11:20] VITALS: BMI 33.2
[2021-04-05 15:11] LABS: Vitamin D,25 Hydroxy 67.2 ng/mL
[2021-04-05 15:25] LABS: Albumin, Serum 3.5 g/dL (3.2-5.0); BUN 17 mg/dL (7-18); BUN/Creat Ratio 11.1 RATIO (10-20); Chloride 103 mmol/L (98-107); Creatinine, Serum 1.53 mg/dL (0.70-1.30); EST Glomerular Filtration Rate 49 mL/min (>60); Est Glom Filt Rate - Afr Amer 59 mL/min (>60); Glucose 116 mg/dL (74-106); Phosphorus 3.4 mg/dL (2.5-4.9); Potassium 3.8 mmol/L (3.5-5.1); Sodium Level 134 mmol/L (136-145)
== END ==
PROVIDERS: PCP Family Medicine Geriatric Medicine; Referring Provider Internal Medicine Nephrology; Visit Provider Internal Medicine Nephrology
DX: N18.30 Chronic kidney disease, stage 3 unspecified (principal)
CPT/HCPCS: 36415; 80069; 82306

== ENCOUNTER 2021-08-29 12:58 | Outpatient (CLI) | payer OTHER, SELFPAY ==
[2021-08-29 16:13] LABS: Absolute Lymphocyte Count 0.98 X10^3/uL (0.83-4.51); Absolute Neutrophil Count 3.8 X10^3/uL (2.0-7.7); Basophil# 0.03 X10^3/uL; Basophil% 0.5 % (0-1); Eosinophils% 1.8 % (0-5); Hematocrit 48.6 % (40-54); Lymphocyte # 0.98 X10^3/ul (0.83-4.51); Lymphocyte % 17.4 % (19-41); Mean Corp Hgb Conc 32.9 g/dL (32-36); Mean Corpuscular Hgb 28.2 pg (27.0-32.0); Mean Corpuscular Volume 85.7 fL (80-94); Monocyte# 0.75 X10^3/uL; Monocyte% 13.3 % (0-10); NRBC Flagged by Analyzer 0 % (0-5); Neutrophil # 3.76 X10^3/uL (2.7-7.7); Neutrophil % 66.6 % (47-70); Platelet Count 296 K/mm3 (150-450); RBC Distribution Width SD 43.6 fl (35.1-43.9); Red Blood Count 5.67 M/mm3 (4.6-6.2); White Blood Count 5.6 K/mm3 (4.4-11.0)
[2021-08-29 16:37] LABS: ALB/GLOB Ratio 0.8 RATIO (0.9-2.4); AST(SGOT) 31 U/L (15-37); Alanine Aminotransfer ALT/SGPT 42 U/L (16-61); Albumin, Serum 3.5 g/dL (3.2-5.0); Alkaline Phosphatase 52 U/L (45-117); Anion Gap 7 (5-15); BUN 13 mg/dL (7-18); BUN/Creat Ratio 8.8 RATIO (10-20); Calcium,Total 8.5 mg/dL (8.5-10.1); Chloride 104 mmol/L (98-107); Creatinine, Serum 1.48 mg/dL (0.70-1.30); EST Glomerular Filtration Rate 51 mL/min (>60); Est Glom Filt Rate - Afr Amer 61 mL/min (>60); Globulin 4.3 g/dL (2.2-4.2); Glucose 103 mg/dL (74-106); PSA,Total - Annual Screen 0.57 ng/mL (0.00-4.00); Potassium 3.9 mmol/L (3.5-5.1); Protein, Total 7.8 g/dL (6.4-8.2); Sodium Level 134 mmol/L (136-145); Thyroid Stim Hormone (TSH) 2.41 uIU/mL (0.358-3.74)
== END 2021-08-29 23:59 | disposition short-term general hospital (02) ==
LOC: POLAB3 13:05
PROVIDERS: PCP Family Medicine Geriatric Medicine; Visit Provider Family Medicine Geriatric Medicine
DX: I10 Essential (primary) hypertension (principal); Z12.5 Encounter for screening for malignant neoplasm of prostate
CPT/HCPCS: 36415; 80053; 84153; 84443; 85025; G0103

== ENCOUNTER 2021-09-20 11:48 | Outpatient (CLI) | payer OTHER, SELFPAY ==
[2021-09-20 13:02] LABS: PSA,Total- Diagnostic 0.63 ng/mL (0.0-4.0)
== END 2021-09-20 23:59 | disposition home or self-care (01) ==
PROVIDERS: PCP Family Medicine Geriatric Medicine; Referring Provider Urology; Visit Provider Urology
DX: C61 Malignant neoplasm of prostate (principal); E29.1 Testicular hypofunction
CPT/HCPCS: 36415; 84153; 84403

== ENCOUNTER 2021-11-22 11:57 | Outpatient (CLI) | payer OTHER, SELFPAY ==
[2021-11-22 13:58] LABS: Albumin, Serum 3.8 g/dL (3.2-5.0); BUN 30 mg/dL (7-18); BUN/Creat Ratio 18.2 RATIO (10-20); Calcium,Total 9.4 mg/dL (8.5-10.1); Chloride 104 mmol/L (98-107); Creatinine, Serum 1.65 mg/dL (0.70-1.30); EST Glomerular Filtration Rate 45 mL/min (>60); Est Glom Filt Rate - Afr Amer 54 mL/min (>60); Glucose 104 mg/dL (74-106); Phosphorus 3.6 mg/dL (2.5-4.9); Sodium Level 134 mmol/L (136-145)
== END 2021-11-22 23:59 | disposition home or self-care (01) ==
LOC: LAB 11:58
PROVIDERS: PCP Family Medicine Geriatric Medicine; Visit Provider Internal Medicine Nephrology
DX: N18.30 Chronic kidney disease, stage 3 unspecified (principal)
CPT/HCPCS: 36415; 80069

== ENCOUNTER → 2022-03-20 | Outpatient (CLI) | payer OTHER, SELFPAY ==
[2022-03-20 14:05] LABS: PSA,Total- Diagnostic 0.52 ng/mL (0.0-4.0)
== END | disposition home or self-care (01) ==
LOC: LAB 12:16
PROVIDERS: PCP Family Medicine Geriatric Medicine; Referring Provider Urology; Visit Provider Urology
DX: C61 Malignant neoplasm of prostate (principal)
CPT/HCPCS: 36415; 84153; 84403

== ENCOUNTER → 2022-04-20 | Outpatient (CLI) | payer OTHER, SELFPAY ==
[2022-04-20 12:50] LABS: PTHIN 41.3 pg/mL (18.4-80.1)
== END | disposition home or self-care (01) ==
LOC: LAB 12:18
PROVIDERS: PCP Family Medicine Geriatric Medicine; Referring Provider Internal Medicine Nephrology; Visit Provider Internal Medicine Nephrology
DX: N18.30 Chronic kidney disease, stage 3 unspecified (principal)
CPT/HCPCS: 36415; 83970

== ENCOUNTER → 2022-07-19 | Outpatient (CLI) | payer OTHER, SELFPAY ==
[2022-07-19 12:49] LABS: PTHIN 69.4 pg/mL (18.4-80.1)
[2022-07-19 12:59] LABS: Albumin, Serum 3.6 g/dL (3.2-5.0); BUN 15 mg/dL (7-18); BUN/Creat Ratio 9.7 RATIO (10-20); Calcium,Total 8.8 mg/dL (8.5-10.1); Chloride 101 mmol/L (98-107); Creatinine, Serum 1.55 mg/dL (0.70-1.30); EST Glomerular Filtration Rate 48 mL/min (>60); Est Glom Filt Rate - Afr Amer 58 mL/min (>60); Glucose 113 mg/dL (74-106); Phosphorus 2.9 mg/dL (2.5-4.9); Potassium 3.6 mmol/L (3.5-5.1); Sodium Level 133 mmol/L (136-145); Uric Acid 3.2 mg/dL (3.5-7.2)
== END | disposition home or self-care (01) ==
LOC: LAB 11:39
PROVIDERS: PCP Family Medicine Geriatric Medicine; Referring Provider Internal Medicine Nephrology; Visit Provider Internal Medicine Nephrology
DX: N18.30 Chronic kidney disease, stage 3 unspecified (principal); M10.9 Gout, unspecified
CPT/HCPCS: 36415; 80069; 83970; 84550

== ENCOUNTER → 2022-08-30 | Outpatient (CLI) | payer OTHER, SELFPAY ==
[2022-08-30 17:28] LABS: Absolute Lymphocyte Count 0.97 X10^3/uL (0.83-4.51); Absolute Neutrophil Count 3.2 X10^3/uL (2.0-7.7); Basophil# 0.02 X10^3/uL; Basophil% 0.4 % (0-1); Eosinophil# 0.08 X10^3/uL; Eosinophils% 1.6 % (0-5); Hematocrit 46.5 % (40-54); Hemoglobin 15.7 g/dL (13.0-16.5); Lymphocyte # 0.97 X10^3/ul (0.83-4.51); Lymphocyte % 19.8 % (19-41); Mean Corp Hgb Conc 33.8 g/dL (32-36); Mean Corpuscular Hgb 29.1 pg (27.0-32.0); Mean Corpuscular Volume 86.1 fL (80-94); Mean Platelet Vol. 10.4 fl (6.2-12.0); Monocyte# 0.63 X10^3/uL; Monocyte% 12.8 % (0-10); NRBC Flagged by Analyzer 0 % (0-5); Neutrophil % 65.2 % (47-70); Platelet Count 290 K/mm3 (150-450); RBC Distribution Width CV 13.6 % (11.6-14.6); RBC Distribution Width SD 43.3 fl (35.1-43.9); White Blood Count 4.9 K/mm3 (4.4-11.0)
[2022-08-30 17:46] LABS: Vitamin D,25 Hydroxy 46.6 ng/mL
[2022-08-30 18:17] LABS: ALB/GLOB Ratio 0.8 RATIO (0.9-2.4); AST(SGOT) 28 U/L (15-37); Alanine Aminotransfer ALT/SGPT 53 U/L (16-61); Albumin, Serum 3.6 g/dL (3.2-5.0); Alkaline Phosphatase 55 U/L (45-117); Anion Gap 9 (5-15); BUN 20 mg/dL (7-18); BUN/Creat Ratio 12.3 RATIO (10-20); Calcium,Total 8.9 mg/dL (8.5-10.1); Chloride 104 mmol/L (98-107); Creatinine, Serum 1.63 mg/dL (0.70-1.30); EST Glomerular Filtration Rate 45 mL/min (>60); Est Glom Filt Rate - Afr Amer 55 mL/min (>60); Globulin 4.4 g/dL (2.2-4.2); Glucose 95 mg/dL (74-106); PSA,Total - Annual Screen 0.41 ng/mL (0.00-4.00); Sodium Level 137 mmol/L (136-145); Thyroid Stim Hormone (TSH) 2.26 uIU/mL (0.358-3.74); Uric Acid 3.1 mg/dL (3.5-7.2)
== END | disposition home or self-care (01) ==
LOC: POLAB3 13:25
PROVIDERS: PCP Family Medicine Geriatric Medicine; Visit Provider Family Medicine Geriatric Medicine
DX: I10 Essential (primary) hypertension (principal); M10.9 Gout, unspecified; Z12.5 Encounter for screening for malignant neoplasm of prostate
CPT/HCPCS: 36415; 80053; 82306; 84153; 84443; 84550; 85025; G0103

== ENCOUNTER → 2022-09-20 | Outpatient (CLI) | payer OTHER, SELFPAY ==
[2022-09-20 17:09] LABS: PSA,Total- Diagnostic 0.31 ng/mL (0.0-4.0)
== END | disposition home or self-care (01) ==
LOC: LAB 15:58
PROVIDERS: PCP Family Medicine Geriatric Medicine; Visit Provider Urology
DX: C61 Malignant neoplasm of prostate (principal)
CPT/HCPCS: 36415; 84153; 84403

== ENCOUNTER → 2022-10-19 | Outpatient (CLI) | payer OTHER, SELFPAY | END | disposition home or self-care (01) | LOC: PSN 09:05 | PROVIDERS: PCP Family Medicine Geriatric Medicine; Referring Provider Family Medicine Geriatric Medicine; Visit Provider Family Medicine Geriatric Medicine | DX: R68.83 Chills (without fever) (principal); Z20.822 Contact with and (suspected) exposure to COVID-19 | CPT/HCPCS: 87635; 87804; 87807; C9803; U0003; U0005 ==

== ENCOUNTER → 2023-03-20 | Outpatient (CLI) | payer OTHER, SELFPAY ==
[2023-03-20 14:55] LABS: Protein, Urine (Random) < 6.0 mg/dL (<11.9)
[2023-03-20 14:58] LABS: Albumin, Serum 3.5 g/dL (3.2-5.0); BUN 14 mg/dL (7-18); BUN/Creat Ratio 8.8 RATIO (10-20); Calcium,Total 8.7 mg/dL (8.5-10.1); Chloride 103 mmol/L (98-107); EST Glomerular Filtration Rate 46 mL/min (>60); Est Glom Filt Rate - Afr Amer 56 mL/min (>60); Glucose 117 mg/dL (74-106); Phosphorus 3.9 mg/dL (2.5-4.9); Potassium 3.6 mmol/L (3.5-5.1); Sodium Level 135 mmol/L (136-145)
== END | disposition home or self-care (01) ==
PROVIDERS: PCP Family Medicine Geriatric Medicine; Referring Provider Internal Medicine Nephrology; Visit Provider Internal Medicine Nephrology
DX: N18.30 Chronic kidney disease, stage 3 unspecified (principal)
CPT/HCPCS: 36415; 80069; 82570; 84156

== ENCOUNTER → 2023-03-27 | Outpatient (CLI) | payer OTHER, SELFPAY ==
[2023-03-27 15:01] LABS: PSA,Total- Diagnostic 0.52 ng/mL (0.0-4.0)
== END | disposition home or self-care (01) ==
LOC: LAB 13:59
PROVIDERS: PCP Family Medicine Geriatric Medicine; Visit Provider Urology
DX: C61 Malignant neoplasm of prostate (principal)
CPT/HCPCS: 36415; 84153

== ENCOUNTER → 2023-09-05 | Outpatient (CLI) | payer OTHER, SELFPAY ==
[2023-09-05 14:57] LABS: Absolute Lymphocyte Count 0.93 X10^3/uL (0.83-4.51); Absolute Neutrophil Count 4.3 X10^3/uL (2.0-7.7); Basophil# 0.04 X10^3/uL; Basophil% 0.7 % (0-1); Eosinophil# 0.11 X10^3/uL; Eosinophils% 1.8 % (0-5); Hematocrit 37.2 % (40-54); Hemoglobin 12.5 g/dL (13.0-16.5); Lymphocyte # 0.93 X10^3/ul (0.83-4.51); Lymphocyte % 15.3 % (19-41); Mean Corp Hgb Conc 33.6 g/dL (32-36); Mean Corpuscular Hgb 28.8 pg (27.0-32.0); Mean Corpuscular Volume 85.7 fL (80-94); Mean Platelet Vol. 11.2 fl (6.2-12.0); Monocyte# 0.66 X10^3/uL; Monocyte% 10.8 % (0-10); NRBC Flagged by Analyzer 0 % (0-5); Neutrophil # 4.34 X10^3/uL (2.7-7.7); Neutrophil % 71.2 % (47-70); Platelet Count 253 K/mm3 (150-450); RBC Distribution Width CV 12.8 % (11.6-14.6); RBC Distribution Width SD 40.2 fl (35.1-43.9); Red Blood Count 4.34 M/mm3 (4.6-6.2); White Blood Count 6.1 K/mm3 (4.4-11.0)
[2023-09-05 15:10] LABS: Vitamin D,25 Hydroxy 57.4 ng/mL
[2023-09-05 15:20] LABS: ALB/GLOB Ratio 0.9 RATIO (0.9-2.4); AST(SGOT) 19 U/L (15-37); Alanine Aminotransfer ALT/SGPT 35 U/L (16-61); Albumin, Serum 3.6 g/dL (3.2-5.0); Alkaline Phosphatase 83 U/L (45-117); Anion Gap 10 (5-15); BUN 29 mg/dL (7-18); BUN/Creat Ratio 17.6 RATIO (10-20); Calcium,Total 9.1 mg/dL (8.5-10.1); Chloride 100 mmol/L (98-107); Creatinine, Serum 1.65 mg/dL (0.70-1.30); EST Glomerular Filtration Rate 45 mL/min (>60); Est Glom Filt Rate - Afr Amer 54 mL/min (>60); Globulin 4.1 g/dL (2.2-4.2); Glucose 373 mg/dL (74-106); PSA,Total - Annual Screen 0.27 ng/mL (0.00-4.00); Potassium 4.2 mmol/L (3.5-5.1); Protein, Total 7.7 g/dL (6.4-8.2); Sodium Level 131 mmol/L (136-145); Thyroid Stim Hormone (TSH) 1.81 uIU/mL (0.358-3.74); Uric Acid 2.7 mg/dL (3.5-7.2)
== END | disposition home or self-care (01) ==
LOC: POLAB3 13:12
PROVIDERS: PCP Family Medicine Geriatric Medicine; Visit Provider Family Medicine Geriatric Medicine
DX: Z12.5 Encounter for screening for malignant neoplasm of prostate (principal); I10 Essential (primary) hypertension; M10.9 Gout, unspecified; E55.9 Vitamin D deficiency, unspecified
CPT/HCPCS: 36415; 80053; 82306; 84153; 84443; 84550; 85025; G0103

== ENCOUNTER → 2023-09-26 | Outpatient (CLI) | payer OTHER, SELFPAY ==
[2023-09-26 10:55] LABS: PSA,Total- Diagnostic 0.21 ng/mL (0.0-4.0)
== END | disposition home or self-care (01) ==
LOC: LAB 10:00
PROVIDERS: PCP Family Medicine Geriatric Medicine; Referring Provider Urology; Visit Provider Urology
DX: C61 Malignant neoplasm of prostate (principal)
CPT/HCPCS: 36415; 84153

== ENCOUNTER → 2024-03-16 | Outpatient (CLI) | payer OTHER, SELFPAY ==
[2024-03-16 11:11] LABS: Protein, Urine (Random) 9.7 mg/dL (<11.9); Protein:Creat Ratio 53 mg/g CRE (0-200)
[2024-03-16 11:19] LABS: Albumin, Serum 3.5 g/dL (3.2-5.0); BUN 26 mg/dL (7-18); BUN/Creat Ratio 16.9 RATIO (10-20); Calcium,Total 9.1 mg/dL (8.5-10.1); Chloride 106 mmol/L (98-107); Creatinine, Serum 1.54 mg/dL (0.70-1.30); EST Glomerular Filtration Rate 48 mL/min (>60); Est Glom Filt Rate - Afr Amer 58 mL/min (>60); Glucose 117 mg/dL (74-106); Phosphorus 4.3 mg/dL (2.5-4.9); Sodium Level 137 mmol/L (136-145)
== END | disposition home or self-care (01) ==
LOC: POLAB3 10:32
PROVIDERS: PCP Family Medicine Geriatric Medicine; Visit Provider Internal Medicine Nephrology
DX: I12.9 Hypertensive chronic kidney disease with stage 1 through stage 4 chronic kidney disease, or unspecified chronic kidney disease (principal); N18.31 Chronic kidney disease, stage 3a
CPT/HCPCS: 36415; 80069; 82570; 84156

== ENCOUNTER → 2024-03-24 | Outpatient (CLI) | payer OTHER, SELFPAY ==
[2024-03-24 10:52] LABS: Absolute Lymphocyte Count 0.95 X10^3/uL (0.83-4.51); Absolute Neutrophil Count 3.7 X10^3/uL (2.0-7.7); Basophil# 0.04 X10^3/uL; Basophil% 0.7 % (0-1); Eosinophil# 0.12 X10^3/uL; Eosinophils% 2.2 % (0-5); Hematocrit 39.3 % (40-54); Hemoglobin 12.9 g/dL (13.0-16.5); Lymphocyte # 0.95 X10^3/ul (0.83-4.51); Lymphocyte % 17.3 % (19-41); Mean Corp Hgb Conc 32.8 g/dL (32-36); Mean Corpuscular Volume 88.3 fL (80-94); Mean Platelet Vol. 9.6 fl (6.2-12.0); Monocyte# 0.68 X10^3/uL; Monocyte% 12.4 % (0-10); NRBC Flagged by Analyzer 0 % (0-5); Neutrophil # 3.67 X10^3/uL (2.7-7.7); Platelet Count 303 K/mm3 (150-450); RBC Distribution Width CV 13.9 % (11.6-14.6); Red Blood Count 4.45 M/mm3 (4.6-6.2); White Blood Count 5.5 K/mm3 (4.4-11.0)
[2024-03-24 11:18] LABS: Vitamin D,25 Hydroxy 72.6 ng/mL
[2024-03-24 12:28] LABS: ALB/GLOB Ratio 0.8 RATIO (0.9-2.4); AST(SGOT) 25 U/L (15-37); Alanine Aminotransfer ALT/SGPT 27 U/L (16-61); Albumin, Serum 3.4 g/dL (3.2-5.0); Alkaline Phosphatase 66 U/L (45-117); Anion Gap 7 (5-15); BUN 25 mg/dL (7-18); BUN/Creat Ratio 16.9 RATIO (10-20); Calcium,Total 8.8 mg/dL (8.5-10.1); Chloride 109 mmol/L (98-107); Cholesterol 123 mg/dL (200); Creatinine, Serum 1.48 mg/dL (0.70-1.30); EST Glomerular Filtration Rate 50 mL/min (>60); Est Glom Filt Rate - Afr Amer 61 mL/min (>60); Globulin 4.1 g/dL (2.2-4.2); Glucose 107 mg/dL (74-106); High Density Lipoprotein 57 mg/dL; Potassium 3.8 mmol/L (3.5-5.1); Protein, Total 7.5 g/dL (6.4-8.2); Sodium Level 140 mmol/L (136-145); Triglycerides 40 mg/dL; Uric Acid 3.1 mg/dL (3.5-7.2); Very Low Density Lipoprotein 8 mg/dL (5-40)
[2024-03-24 13:25] LABS: Hemoglobin A1c 6.7 % (3.8-5.6)
== END | disposition home or self-care (01) ==
LOC: POLAB3 10:35
PROVIDERS: PCP Family Medicine Geriatric Medicine; Visit Provider Family Medicine Geriatric Medicine
DX: E11.65 Type 2 diabetes mellitus with hyperglycemia (principal); M10.9 Gout, unspecified; I10 Essential (primary) hypertension; E55.9 Vitamin D deficiency, unspecified
CPT/HCPCS: 36415; 80053; 80061; 82306; 83036; 84443; 84550; 85025

== ENCOUNTER → 2024-06-23 | Outpatient (CLI) | payer OTHER, SELFPAY ==
[2024-06-23 15:06] LABS: Absolute Lymphocyte Count 1.27 X10^3/uL (0.83-4.51); Absolute Neutrophil Count 3.9 X10^3/uL (2.0-7.7); Basophil# 0.06 X10^3/uL; Basophil% 0.9 % (0-1); Eosinophil# 0.29 X10^3/uL; Eosinophils% 4.6 % (0-5); Hematocrit 42.3 % (40-54); Hemoglobin 14.3 g/dL (13.0-16.5); Lymphocyte # 1.27 X10^3/ul (0.83-4.51); Mean Corp Hgb Conc 33.8 g/dL (32-36); Mean Corpuscular Hgb 28.8 pg (27.0-32.0); Mean Corpuscular Volume 85.3 fL (80-94); Mean Platelet Vol. 10.5 fl (6.2-12.0); Monocyte# 0.79 X10^3/uL; Monocyte% 12.4 % (0-10); NRBC Flagged by Analyzer 0 % (0-5); Neutrophil # 3.92 X10^3/uL (2.7-7.7); Neutrophil % 61.8 % (47-70); Platelet Count 296 K/mm3 (150-450); RBC Distribution Width SD 43.1 fl (35.1-43.9); Red Blood Count 4.96 M/mm3 (4.6-6.2); White Blood Count 6.4 K/mm3 (4.4-11.0)
[2024-06-23 15:42] LABS: Vitamin D,25 Hydroxy 62.4 ng/mL
[2024-06-23 15:44] LABS: Phosphorus 3.8 mg/dL (2.5-4.9)
[2024-06-23 15:50] LABS: ALB/GLOB Ratio 0.9 RATIO (0.9-2.4); AST(SGOT) 26 U/L (15-37); Alanine Aminotransfer ALT/SGPT 29 U/L (16-61); Albumin, Serum 3.6 g/dL (3.2-5.0); Alkaline Phosphatase 65 U/L (45-117); Anion Gap 6 (5-15); BUN 30 mg/dL (7-18); BUN/Creat Ratio 20.1 RATIO (10-20); Chloride 107 mmol/L (98-107); Cholesterol 150 mg/dL (200); Creatinine, Serum 1.49 mg/dL (0.70-1.30); EST Glomerular Filtration Rate 50 mL/min (>60); Est Glom Filt Rate - Afr Amer 60 mL/min (>60); Globulin 4.2 g/dL (2.2-4.2); Glucose 103 mg/dL (74-106); High Density Lipoprotein 60 mg/dL; Protein, Total 7.8 g/dL (6.4-8.2); Sodium Level 139 mmol/L (136-145); Triglycerides 65 mg/dL; Uric Acid 2.9 mg/dL (3.5-7.2); Very Low Density Lipoprotein 13 mg/dL (5-40)
[2024-06-23 17:03] LABS: Hemoglobin A1c 6.2 % (3.8-5.6)
== END | disposition home or self-care (01) ==
LOC: POLAB3 14:39
PROVIDERS: PCP Family Medicine Geriatric Medicine; Visit Provider Internal Medicine Nephrology
DX: E78.5 Hyperlipidemia, unspecified (principal); E11.65 Type 2 diabetes mellitus with hyperglycemia; E11.22 Type 2 diabetes mellitus with diabetic chronic kidney disease; N18.31 Chronic kidney disease, stage 3a; I12.9 Hypertensive chronic kidney disease with stage 1 through stage 4 chronic kidney disease, or unspecified chronic kidney disease; M10.9 Gout, unspecified; E55.9 Vitamin D deficiency, unspecified
CPT/HCPCS: 36415; 80053; 80061; 82306; 83036; 84100; 84443; 84550; 85025

== ENCOUNTER → 2024-08-31 | Outpatient (CLI) | payer OTHER, SELFPAY ==
[2024-08-31 12:03] LABS: Absolute Lymphocyte Count 0.88 X10^3/uL (0.83-4.51); Basophil# 0.04 X10^3/uL; Basophil% 0.7 % (0-1); Eosinophil# 0.16 X10^3/uL; Eosinophils% 2.8 % (0-5); Hematocrit 41.5 % (40-54); Hemoglobin 13.6 g/dL (13.0-16.5); Lymphocyte # 0.88 X10^3/ul (0.83-4.51); Lymphocyte % 15.6 % (19-41); Mean Corp Hgb Conc 32.8 g/dL (32-36); Mean Corpuscular Hgb 28.4 pg (27.0-32.0); Mean Corpuscular Volume 86.6 fL (80-94); Mean Platelet Vol. 9.7 fl (6.2-12.0); Monocyte% 10.6 % (0-10); NRBC Flagged by Analyzer 0 % (0-5); Neutrophil # 3.95 X10^3/uL (2.7-7.7); Neutrophil % 70.1 % (47-70); Platelet Count 275 K/mm3 (150-450); RBC Distribution Width CV 14.4 % (11.6-14.6); RBC Distribution Width SD 45.7 fl (35.1-43.9); Red Blood Count 4.79 M/mm3 (4.6-6.2); White Blood Count 5.6 K/mm3 (4.4-11.0)
[2024-08-31 13:12] LABS: ALB/GLOB Ratio 0.8 RATIO (0.9-2.4); AST(SGOT) 23 U/L (15-37); Alanine Aminotransfer ALT/SGPT 27 U/L (16-61); Albumin, Serum 3.6 g/dL (3.2-5.0); Alkaline Phosphatase 64 U/L (45-117); Anion Gap 2 (5-15); BUN 24 mg/dL (7-18); BUN/Creat Ratio 15.6 RATIO (10-20); Calcium,Total 9.2 mg/dL (8.5-10.1); Chloride 109 mmol/L (98-107); Cholesterol 141 mg/dL (200); Creatinine, Serum 1.54 mg/dL (0.70-1.30); EST Glomerular Filtration Rate 48 mL/min (>60); Est Glom Filt Rate - Afr Amer 58 mL/min (>60); Globulin 4.3 g/dL (2.2-4.2); Glucose 109 mg/dL (74-106); High Density Lipoprotein 57 mg/dL; Protein, Total 7.9 g/dL (6.4-8.2); Sodium Level 138 mmol/L (136-145); Triglycerides 64 mg/dL; Uric Acid 2.8 mg/dL (3.5-7.2); Very Low Density Lipoprotein 13 mg/dL (5-40)
[2024-08-31 14:05] LABS: Hemoglobin A1c 5.9 % (3.8-5.6)
[2024-08-31 14:49] LABS: Microalbumin,Random Urine 19.2 mg/L (NO RANGE EST.); Microalbumin:Creatinine Ratio 9.4 mg/g CRE (<30 mg/g CRE)
== END | disposition home or self-care (01) ==
LOC: POLAB3 11:44
PROVIDERS: PCP Family Medicine Geriatric Medicine; Visit Provider Family Medicine Geriatric Medicine
DX: E78.5 Hyperlipidemia, unspecified (principal); E11.65 Type 2 diabetes mellitus with hyperglycemia; I10 Essential (primary) hypertension; M10.9 Gout, unspecified; Z12.5 Encounter for screening for malignant neoplasm of prostate; E55.9 Vitamin D deficiency, unspecified
CPT/HCPCS: 36415; 80053; 80061; 82043; 82570; 83036; 84443; 84550; 85025

== ENCOUNTER → 2024-09-22 | Outpatient (CLI) | payer OTHER, SELFPAY ==
[2024-09-22 11:17] LABS: Albumin, Serum 3.6 g/dL (3.2-5.0); BUN 31 mg/dL (7-18); BUN/Creat Ratio 20.4 RATIO (10-20); Chloride 105 mmol/L (98-107); Creatinine, Serum 1.52 mg/dL (0.70-1.30); EST Glomerular Filtration Rate 49 mL/min (>60); Est Glom Filt Rate - Afr Amer 59 mL/min (>60); Glucose 116 mg/dL (74-106); Phosphorus 3.6 mg/dL (2.5-4.9); Potassium 3.9 mmol/L (3.5-5.1); Sodium Level 138 mmol/L (136-145)
[2024-09-22 12:11] LABS: Microalbumin,Random Urine 17.6 mg/L (NO RANGE EST.)
== END | disposition home or self-care (01) ==
LOC: LAB 09:29
PROVIDERS: PCP Family Medicine Geriatric Medicine; Referring Provider Internal Medicine Nephrology; Visit Provider Internal Medicine Nephrology
DX: E11.22 Type 2 diabetes mellitus with diabetic chronic kidney disease (principal); N18.31 Chronic kidney disease, stage 3a
CPT/HCPCS: 36415; 80069; 82043; 82570

== ENCOUNTER → 2024-09-30 | Outpatient (CLI) | payer OTHER, SELFPAY ==
[2024-09-30 11:09] LABS: PSA,Total- Diagnostic 0.25 ng/mL (0.0-4.0)
== END | disposition home or self-care (01) ==
LOC: LAB 10:12
PROVIDERS: PCP Family Medicine Geriatric Medicine; Referring Provider Urology; Visit Provider Urology
DX: C61 Malignant neoplasm of prostate (principal)
CPT/HCPCS: 36415; 84153

== ENCOUNTER → 2025-02-25 | Outpatient (CLI) | payer OTHER, SELFPAY ==
[2025-02-25 12:23] LABS: Hematocrit 39.3 % (40-54); Hemoglobin 13.7 g/dL (13.0-16.5); Immature Granulocytes Count 0.010 X10^3/uL (0.0-0.0); Mean Corp Hgb Conc 34.9 g/dL (32-36); Mean Corpuscular Volume 83.3 fL (80-94); Mean Platelet Vol. 10.0 fl (6.2-12.0); NRBC Flagged by Analyzer 0 % (0-5); Platelet Count 273 K/mm3 (150-450); RBC Distribution Width CV 14.2 % (11.6-14.6); RBC Distribution Width SD 42.8 fl (35.1-43.9); Red Blood Count 4.72 M/mm3 (4.6-6.2); White Blood Count 5.7 K/mm3 (4.4-11.0)
[2025-02-25 13:17] LABS: Uric Acid 4.0 mg/dL (3.5-7.2); Vitamin D,25 Hydroxy 75.1 ng/mL (30-100)
[2025-02-25 13:25] LABS: AST(SGOT) 29 U/L (<=37); Alanine Aminotransfer ALT/SGPT 29 U/L (<=46); Albumin, Serum 4.1 g/dL (3.4-4.8); Alkaline Phosphatase 61 U/L (40-129); Anion Gap 14 (5-15); BUN 24 mg/dL (4-19); BUN/Creat Ratio 17.3 RATIO (10-20); Calcium,Total 9.4 mg/dL (7.6-11.0); Carbon Dioxide 18.9 mmol/L (21.0-32.0); Chloride 103 mmol/L (98-108); Globulin 3.5 g/dL (2.2-4.2); Glucose 114 mg/dL (70-99); Potassium 4.2 mmol/L (3.3-5.1)
[2025-02-25 19:40] LABS: Xtra Tube Kwok EXTRA TUBE
== END | disposition home or self-care (01) ==
LOC: POLAB3 11:36
PROVIDERS: PCP Family Medicine Geriatric Medicine; Visit Provider Family Medicine Geriatric Medicine
DX: E78.5 Hyperlipidemia, unspecified (principal); E11.65 Type 2 diabetes mellitus with hyperglycemia; I10 Essential (primary) hypertension; M10.9 Gout, unspecified; E55.9 Vitamin D deficiency, unspecified
CPT/HCPCS: 36415; 80053; 82306; 84443; 84550; 85025